=== PATIENT | female | born 1955 | race African-American/Black ===

== ENCOUNTER → 2016-06-27 | Outpatient (CLI) | payer MEDICARE, MEDICAID ==
[~2016-06-27] MED LIST: AMINOPHYLLINE INJ/PF 250 MG/10 ML SDV IV ONE; REGADENOSON INJ 0.4 MG/5 ML DISP.SYRIN IV ONE
--- NOTE | 2016-06-28 11:32 | RADIOLOGY REPORT ---
STRESS TEST REPORT PATIENT NAME: MARCIA GANNON ROOM#: DATE OF SERVICE: 06/27/2016 AGE: 61Y ORDER#: [id number] REFERRING MD: Ciara torres INDICATION: Preoperative cardiovascular examination for kidney transplant. PROCEDURE PERFORMED: REST/STRESS SINGLE ISOTOPE CARDIOLITE SPECT IMAGING WITH IV LEXISCAN STRESS AND GATED SPECT IMAGING CLINICAL HISTORY: This is a 61-year-old black female with no known coronary artery disease but has cardiac risk factors of hypertension and ESRD. Current symptomatology includes no chest pains. REPORT: This test was originally ordered as an exercise myocardial perfusion imaging stress test. She was started on the treadmill and within one minute she declared that she could only walk one more minute. Heart rate that time was not sufficient for diagnostic purposes; therefore, the test was converted into an IV Lexiscan stress MPI. The patient received IV Lexiscan 0.4 mg infused over 10 seconds and flushed. The resting heart rate was 74 bpm and increased to 101 bpm at end infusion. The resting BP was 106/84 and increased to 164/74 at end infusion. Patient had symptoms of shortness of breath, as well as dizziness in the head despite no sign of hypotension. The repeat blood pressure was 160/80. She specifically had no chest pains and no headaches and no nausea. Due to a complaint of pressure in the head, she was given 100 mg IV Aminophyllin to reverse the side effect of pressure in the head at approximately seven minutes after the IV Lexiscan injection. The resting 12 lead EKG showed sinus rhythm of 74 bpm, [address] depression was seen in leads 2, 3, AVF and [address]-T inversion was seen in lead V6. At end infusion, the EKG showed a MET of [address]-T inversion in V6. Myocardial perfusion imaging was performed at rest 60 minutes following injection of 10.19 mCi Cardiolite. Ten seconds after patient was injected with the Lexiscan, she was injected with 31.5 mCi Cardiolite and flushed. Gated post stress tomographic imaging was performed 60 minutes approximately 60 minutes after stress. FINDINGS: The overall quality of the study is good. The left ventricular cavity is noted to be more enlarged on the stress compared to the rest study. There is evidence of abnormal transient ischemic dilatation of the left ventricle. TID ratio was 1.25, and this is abnormal. SPECT images showed no evidence of IV Lexiscan induced reversible ischemia, but there was small moderate fixed perfusion defects in the basal inferior wall and basal inferoseptal wall. The gated SPECT imaging showed reduced motion and contraction in the basal inferior wall. The left ventricular ejection fraction was calculated to be 52%. IMPRESSION: MYOCARDIAL PERFUSION IMAGING IS ABNORMAL. THERE IS TRANSIENT ISCHEMIC DILATATION OF THE LEFT VENTRICLE WITH TID RATIO OF 1.25 VISUALLY CONFIRMED. THERE IS A SMALL AREA OF MODERATELY FIXED PERFUSION DEFECT IN THE BASAL INFERIOR WALL AND BASAL INFEROSEPTAL WALL. OVERALL LEFT VENTRICULAR SYSTOLIC FUNCTION WAS LOW NORMAL AT 52% WITH REDUCED MOTION AND CONTRACTION SEEN IN THE BASAL INFERIOR WALL. NO PRIOR STUDIES FOR COMPARISON. INTERPRETING PHYSICIAN: AVRIL NEWSOME M.D. /: NOAH TT: [id number] ID: [id number] /: [id number] TD: 0931 JOB: [id number] cc:Ciara KELLEY M.D > MTDD
--- NOTE | 2016-06-29 19:31 | XCELERA REPORT ---
[address] [address] Transthoracic Echocardiogram Report Name: MARCIA GANNON Age: 61 yrs Gender: Female : 1955 Patient Status: Outpatient Patient Location: [facility] Study Date: 06/27/2016 11:07 AM Height: 65 in Weight: 105 lb BSA: 1.5 m2 Procedure: A complete two-dimensional transthoracic echocardiogram was performed (2D, M-mode, spectral and color flow Doppler). The study was technically adequate with some images being suboptimal in quality. Reason For Study: Z01.810 Ordering Physician: REBEL WOOTENC Performed By: Penny Haij Interpretation Summary The left ventricular ejection fraction is normal. There is moderate concentric left ventricular hypertrophy. Doppler measurements suggest pseudonormalized left ventricular relaxation, which is associated with grade II/IV or mild to moderate diastolic dysfunction The left ventricle is grossly normal size. Wall motion cannot be accurately commented on, but no definite regional wall motion abnormalities noted. There is moderate pulmonary hypertension by echo Right ventricular systolic pressure is estimated to be elevated at 50- 60mmHg. The right ventricle appears to be hypertrophied The right ventricular systolic function is normal. The right ventricle is grossly normal size. The right atrium is normal in size The left atrium is mildly dilated. There is a mild amount of mitral regurgitation There is no mitral valve stenosis. There is no aortic valve stenosis No aortic regurgitation is present. There is a mild amount of tricuspid regurgitation The aortic root is not well visualized but is probably normal size. The inferior vena cava appeared normal and decreased > 50% with respiration (RAP 5-10 mmHg) Minimal pericardial effusion. MMode/2D Measurements \T\ Calculations RVDd: 2.6 cm LVIDd: 4.6 cm FS: 44.5 % Ao root diam: 2.3 cm IVSd: 1.4 cm LVIDs: 2.5 cm EDV(Teich): 95.4 ml LVPWd: 1.4 cm ESV(Teich): 23.1 ml Ao root area: 4.0 cm2 EF(Teich): 75.8 % LA dimension: 4.4 cm LVOT diam: 1.9 cm LVOT area: 3.0 cm2 Doppler Measurements \T\ Calculations MV E max clementine: MV P1/2t max clementine: Ao V2 max: LV V1 max P.2 cm/sec 76.8 cm/sec 190.0 cm/sec 12.8 mmHg MV A max clementine: MV P1/2t: 109.9 msec Ao max PG: LV V1 max: 57.6 cm/sec MVA(P1/2t): 2.0 cm2 14.4 mmHg 178.9 cm/sec MV E/A: 1.3 MV dec slope: CRISTO(V,D): 2.8 cm2 204.7 cm/sec2 PA V2 max: PI end-d clementine: TR max clementine: 112.4 cm/sec 178.8 cm/sec 365.8 cm/sec PA max PG: TR max P.1 mmHg 53.6 mmHg Left Ventricle The left ventricle is grossly normal size. There is moderate concentric left ventricular hypertrophy. The left ventricular ejection fraction is normal. Doppler measurements suggest pseudonormalized left ventricular relaxation, which is associated with grade II/IV or mild to moderate diastolic dysfunction. Wall motion cannot be accurately commented on, but no definite regional wall motion abnormalities noted. Right Ventricle The right ventricle is grossly normal size. The right ventricle appears to be hypertrophied. The right ventricular systolic function is normal. Atria The right atrium is normal in size. The left atrium is mildly dilated. Interarterial septum not well visualized and not well dopplered. Cannot comment on ASD/PFO presence. Mitral Valve The mitral valve is grossly normal. There is no mitral valve stenosis. There is a mild amount of mitral regurgitation. Aortic Valve The aortic valve is grossly normal. There is no aortic valve stenosis. No aortic regurgitation is present. Tricuspid Valve The tricuspid valve is not well visualized, but is grossly normal. There is no tricuspid stenosis. There is a mild amount of tricuspid regurgitation. There is moderate pulmonary hypertension by echo. Right ventricular systolic pressure is estimated to be elevated at 50-60mmHg. Pulmonic Valve The pulmonic valve is not well visualized. Great Vessels The aortic root is not well visualized but is probably normal size. The inferior vena cava appeared normal and decreased > 50% with respiration (RAP 5-10 mmHg). Effusions Minimal pericardial effusion. : CHRIS ZELAYA, ELECTRICAL ASSEMBLY SUPERVISOR-C > Katalina Hernandez
== END ==
LOC: RAD 06:56
PROVIDERS: ATTEND Registered Nurse
DX: Z01.810 Encounter for preprocedural cardiovascular examination (principal); I12.0 Hypertensive chronic kidney disease with stage 5 chronic kidney disease or end stage renal disease; N18.6 End stage renal disease
CPT/HCPCS: 93306; 93017; 78452; A9500; J2785; J0280; Q9969

== ENCOUNTER → 2017-09-05 | Outpatient (CLI) | payer OTHER, MEDICARE, MEDICAID ==
--- NOTE | 2017-09-05 11:18 | RADIOLOGY REPORT (SQ) ---
EXAM DESCRIPTION: CT ABD/PELVIS WITH IV ONLY COMPLETED DATE/TIME: 09/05/2017 10:57 am REASON FOR STUDY: ABN FINDINGS ON DX IMAGING OF ABD REGIONS, INC RETROPERITON R93.5 ABN FINDINGS ON DX IMAGING OF ABD REGIONS, INC RETROPE COMPARISON: CT pelvis 02/25/2015 TECHNIQUE: CT scan of the abdomen and pelvis performed using helical scanning technique with dynamic intravenous contrast injection. No oral contrast. Images reviewed with lung, soft tissue, and bone windows. Reconstructed coronal and sagittal MPR images reviewed. Delayed images for evaluation of the urinary system also acquired. All images stored on PACS. All CT scanners at this facility use dose modulation, iterative reconstruction, and/or weight based d osing when appropriate to reduce radiation dose to as low as reasonably achievable (ALARA). [facility]: Dose Right [facility]: CareDose [facility]: Dose Right [facility]: Teradose 4D [facility]: [employer] CONTRAST TYPE AND DOSE: contrast/concentration: Isovue 370.00 mg/ml; Total Contrast Delivered: 52.0 ml; Total Saline Delivered: 65.0 ml RENAL FUNCTION: Creatinine 8.3. Patient is on dialysis, CT for renal transplant workup. RADIATION DOSE: CT Rad equipment meets quality standard of care and radiation dose reduction techniq ues were employed. CTDIvol: 2.2 - 3.1 mGy. DLP: 327 mGy-cm.. LIMITATIONS: None. FINDINGS: LOWER CHEST: No significant findings. No nodules or infiltrates. LIVER: Normal size. No masses. No dilated ducts. SPLEEN: Normal size. No focal lesions. PANCREAS: No masses. No significant calcifications. No adjacent inflammation or peripancreatic fluid collections. Pancreatic duct not dilated. GALLBLADDER: No identified stones by CT criteria. No inflammatory changes to suggest cholecystitis. ADRENAL GLANDS: No significant masses or asymmetry. RIGHT KIDNEY AND URETER: Right kidney is 7.6 cm in length with diffuse cortical thinning. No solid m asses. Less than 1 cm cyst right upper pole kidney. No significant calcifications. No hydronephr osis or hydroureter. LEFT KIDNEY AND URETER: Left kidney is 6.7 cm in length with diffuse cortical thinning. No solid mas ses. 4 cm left midpole cortical cyst, 1.6 cm left lower pole cortical cyst. No significant calcifi cations. No hydronephrosis or hydroureter. AORTA AND VESSELS: No aneurysm. No dissection. SMA, celiac without stenosis. Heavily calcified bilat eral craig renal arteries. Bilateral common iliac, internal iliac and external iliac arteries and v eins are patent. No significant stenosis of the common iliac or external iliac arteries. RETROPERITONEUM: No retroperitoneal adenopathy, hemorrhage or masses. BOWEL AND PERITONEAL CAVITY: No masses or inflammatory changes. No free fluid or peritoneal masses. Large amount of stool throughout the colon APPENDIX: Not definitely visualized. PELVIS: Enlarged fibroid uterus 10 x 7 x 7 cm in size. Ovaries not identified. No free fluid. Callie l bladder. ABDOMINAL WALL: No masses. No hernias. BONES: No significant or acute findings. OTHER: No other significant finding. IMPRESSION: Small nonfunctioning kidneys bilaterally. Benign renal cortical cysts. Enlarged fibroid uterus. TECHNICAL DOCUMENTATION: JOB ID: [id number] Quality ID # [id number]: Final reports with documentation of one or more dose reduction techniques (e.g., Au tomated exposure control, adjustment of the mA and/or kV according to patient size, use of iterative reconstruction technique) 2010 [employer]- All Rights Reserved Reading location - IP/workstation name: [facility]
== END ==
LOC: RAD 10:13
PROVIDERS: ATTEND Registered Nurse
DX: R93.5 Abnormal findings on diagnostic imaging of other abdominal regions, including retroperitoneum (principal)
CPT/HCPCS: 74177; 82565

== ENCOUNTER 2018-02-13 01:16 | Emergency (ER) | payer MEDICARE, OTHER, MEDICAID ==
--- NOTE | 2018-02-13 01:50 | ER Document Report ---
ED General - General Chief Complaint: Pain All Over Stated Complaint: HEADACHE Time Seen by Provider: 02/13/18 01:41 Notes: Patient is a 62-year-old female presents with complaint of body aches and headache. She says a few weeks ago she had some runny nose and congestion and that got outer. That time she also had body aches but it also got better. Her family members are also sick. Today she started getting a lot of congestion and runny nose again and then tonight she started in the body aches and some headache again. She took some Tylenol which is up a little bit but not relieved her pain. No deep breathing. No neck stiffness. No fevers. The patient says she never gets a fever. No vomiting. She does have history of chronic kidney disease. No dysuria. TRAVEL OUTSIDE OF THE [place] IN LAST 30 DAYS: No - Related Data Allergies/Adverse Reactions: No Known Allergies Allergy (Verified 11/05/13 16:16) Past Medical History - Social History Smoking Status: Never Smoker Frequency of alcohol use: None Drug Abuse: None Family History: CVA, Hypertension - Past Medical History Cardiac Medical History: Reports: Hx Hypertension Renal/ Medical History: Reports: Hx End Stage Renal Disease - Dialysis MWF - Immunizations Hx Diphtheria, Pertussis, Tetanus Vaccination: Yes Review of Systems - Review of Systems Notes: My Normal Review Basic REVIEW OF SYSTEMS: CONSTITUTIONAL : No fever. URI type symptoms. EENT: No congestion. CARDIOVASCULAR: Denies chest pain. RESPIRATORY: Denies cough, cold, or chest congestion. Denies shortness of breath, difficulty breathing, or wheezing. GASTROINTESTINAL: Denies abdominal pain. Denies nausea, vomiting, or diarrhea. Denies constipation. Last BM: GENITOURINARY: Denies difficulty urinating, painful urination, burning, frequency, or blood in urine. MUSCULOSKELETAL: Body aches SKIN: Denies rash or skin lesions. NEUROLOGICAL: Denies altered mental status or loss of consciousness. Has a headache. Denies weakness or paralysis or loss of use of either side. Denies problems with gait or speech. Denies sensory or motor loss. ALL OTHER SYSTEMS REVIEWED AND NEGATIVE. Physical Exam - Vital signs Vitals: Temp Pulse Resp BP Pulse Ox 98.4 F 72 16 141/59 H 100 02/13/18 01:17 02/13/18 01:17 02/13/18 01:17 02/13/18 01:17 02/13/18 01:17 - Notes Notes: General Appearance: Well nourished, alert, cooperative, no acute distress, mild obvious discomfort. Vitals: reviewed, See vital signs table. Head: no swelling or tenderness to the head Eyes: PERRL, EOMI, Conjuctiva clear Mouth: No decreasd moisture Throat: No tonsillar inflammation, No airway obstruction, No lymphadenopathy Ears: Normal-appearing tympanic membranes bilaterally. Neck: Supple, no neck tenderness, Lungs: No wheezing, No rales, No rhonci, No accessory muscle use, good air exchange bilaterally. Heart: Normal rate, Regular rythm, No murmur, no rub Abdomen: Normal BS, soft, No rigidity, No abdominal tenderness, No guarding, no rebound, no abdominal masses, no organomegaly Extremities: strength 5/5 in all extremities, good pulses in all extremities, no swelling or tenderness in the extremities, no edema. Skin: warm, dry, appropriate color, no rash Neuro: speech clear, oriented x 3, normal affect, responds appropriately to questions. Cranial nerves II through XII are intact. Distal sensation intact. Patient moves all extremities without difficulty. Course - Re-evaluation Re-evalutation: 02/13/18 02:57 Patient continues look well on reevaluation. She does have a lot of sinus congestion which I think is probably contributing to the pressure that she has in her forehead and sinuses. I will give her a dose of Decadron as hopefully this will help relieve some of the inflammation around her sinuses relieve some of the pressure. She is using Nasacort at home. I encouraged her to continue to do this. Flu swab is negative. I encouraged her to follow-up closely with her primary care doctor for reevaluation later this week. I encouraged her return to ER if she has fevers, difficulty breathing, or worsening of her symptoms. Patient agrees with plan and will be discharged home. Dictation of this chart was performed using voice recognition software; therefore, there may be some unintended grammatical errors. - Vital Signs Vital signs: Temp Pulse Resp BP Pulse Ox 98.4 F 72 16 141/59 H 100 02/13/18 01:17 02/13/18 01:17 02/13/18 01:17 02/13/18 01:17 02/13/18 01:17 Discharge - Discharge Clinical Impression: Body aches URI (upper respiratory infection) Qualifiers: URI type: unspecified URI Qualified Code(s): J06.9 - Acute upper respiratory infection, unspecified Headache Qualifiers: Headache type: unspecified Headache chronicity pattern: unspecified pattern Intractability: not intractable Qualified Code(s): R51 - Headache Condition: Good Disposition: HOME, SELF-CARE Additional Instructions: Please continue to use over the counter nasal sprays such as Nasacort. Please drink caffeinated liquids. Please follow-up with your doctor in 2-3 days for reevaluation. Please return to the ER for fevers, difficulty breathing, or feel that you are worsening in any way. Dictation of this chart was performed using voice recognition software; therefore, there may be some unintended grammatical errors. Referrals: CHRIS ZELAYA NP-C [Primary Care Provider] - 02/15/18
[2018-02-13 02:34] LABS: A TYPE INFLUENZA AG NEGATIVE (NEGATIVE); B INFLUENZA AG NEGATIVE (NEGATIVE)
[2018-02-13] MEDS ORDERED: DEXAMETHASONE SOD PHOS INJ 10 MG/1 ML VIAL IM ONE (02:53)
[2018-02-13 03:39] VITALS: BP 140/57
== END 2018-02-13 03:39 | disposition home or self-care (01) ==
LOC: ER 01:16
DX: J06.9 Acute upper respiratory infection, unspecified (principal); J32.9 Chronic sinusitis, unspecified; R51 Headache; I12.0 Hypertensive chronic kidney disease with stage 5 chronic kidney disease or end stage renal disease; N18.6 End stage renal disease; Z99.2 Dependence on renal dialysis
CPT/HCPCS: 99283; 96372; 87804; J1100

== ENCOUNTER 2018-08-01 04:48 | Emergency (ER) | payer MEDICARE, MEDICAID ==
[2018-08-01 08:08] LABS: APPEARANCE,URINE CLOUDY; BILIRUBIN,URINE NEGATIVE (NEGATIVE); COLOR,URINE YELLOW; GLUCOSE, URINE NEGATIVE (NEGATIVE); KETONES,URINE NEGATIVE (NEGATIVE); LEUKOCYTE ESTERASE,URINE SMALL (NEGATIVE); NITRITE,URINE NEGATIVE (NEGATIVE); PROTEIN,URINE >=500 mg/dL (NEGATIVE); URIC ACID CRYSTALS,URINE RARE /HPF; URINE SPECIFIC GRAVITY 1.016; UROBILINOGEN,URINE NEGATIVE mg/dL (<2.0)
--- NOTE | 2018-08-01 08:27 | ER Document Report ---
Addendum entered and electronically signed by JOEL MIJARES NP 08/01/18 10:56: Discharge - Discharge Clinical Impression: Abdominal pain Qualifiers: Abdominal location: lower abdomen, unspecified Qualified Code(s): R10.30 - Lower abdominal pain, unspecified Uterine fibroid Qualifiers: Uterine leiomyoma location: unspecified location Qualified Code(s): D25.9 - Leiomyoma of uterus, unspecified Constipation Qualifiers: Constipation type: unspecified constipation type Qualified Code(s): K59.00 - Constipation, unspecified Condition: Stable Disposition: HOME, SELF-CARE Instructions: Abdominal Pain ([facility]), Constipation ([facility]) Additional Instructions: Take medication as prescribed. Follow-up with [facility] at the next available appointment. Follow-up with your primary care doctor at the next available appointment. Follow-up sooner for worsening pain, high fever, persistent vomiting, worsening pain, or for any further concerns. Prescriptions: Tramadol HCl [Ultram 50 mg Tablet] 50 mg PO Q6HP PRN #12 tablet PRN Reason: Magnesium Citrate [Citrate of Magnesia 296 ml Bottle] 296 ml PO DAILY #1 bottle Polyethylene Glycol 3350 [Miralax] 1 cap PO DAILY #1 bottle Referrals: CHRIS ZELAYA NP-C [NO LOCAL MD] - Follow up as needed BULMARO FUNG MD [ACTIVE STAFF] - Follow up as needed Original Note: ED GI/ - General Chief Complaint: Urinary Problem Stated Complaint: POSSIBLE UTI Time Seen by Provider: 08/01/18 08:04 Primary Care Provider: CHRIS ZELAYA NP-C [NO LOCAL MD] - Follow up as needed Mode of Arrival: Ambulatory Information source: Patient TRAVEL OUTSIDE OF THE [place] IN LAST 30 DAYS: No - HPI Patient complains to provider of: Abdominal pain, Dysuria Notes: 08/01/18 08:25 Patient here with complaints of lower abdominal pain, pain with urination. This been on for about a week now. The patient is a dialysis patient went to dialysis yesterday. She states there was no problems with her dialysis yesterday. She states that she was having some nausea, vomiting, diarrhea earlier in the week, this has resolved. She states that she was diagnosed with a urinary tract infection is been taking Cipro but does not seem to feel any better. She denies any chest pain or shortness of breath at this time. She complains of some lower abdominal pain and some low back pain. No dysuria. States that she has had decrease in appetite has not been eating or drinking as much. No rash. She reports having a fever earlier in the week, she states that she has not had a fever for the last several days. Nothing makes her pain better. Pain seems to be worse when she attempts to urinate. She denies any numbness, tingling, weakness. No other complaints. She denies needing anything for pain at this time. - Related Data Allergies/Adverse Reactions: No Known Allergies Allergy (Verified 11/05/13 16:16) Past Medical History - Social History Smoking Status: Never Smoker Family History: CVA, Hypertension Patient has suicidal ideation: No Patient has homicidal ideation: No - Past Medical History Cardiac Medical History: Reports: Hx Hypertension Renal/ Medical History: Reports: Hx End Stage Renal Disease - Dialysis MWF. Denies: Hx Peritoneal Dialysis - Immunizations Hx Diphtheria, Pertussis, Tetanus Vaccination: Yes Review of Systems - Review of Systems -: Yes All other systems reviewed and negative Physical Exam - Vital signs Vitals: Temp Pulse Resp BP Pulse Ox 98.8 F 65 16 154/61 H 100 08/01/18 05:08 08/01/18 05:08 08/01/18 05:08 08/01/18 05:08 08/01/18 05:08 - Notes Notes: GENERAL: alert, cooperative, nontoxic, no distress. HEAD: normocephalic, atraumatic EYES: conjunctiva pink without discharge, no external redness or swelling. EARS: no external swelling, no external redness NOSE: atraumatic, no external swelling MOUTH/THROAT: mucous membranes moist and pink, posterior pharynx without erythema, swelling, exudate. No trismus or drooling. NECK: soft, supple, full range of motion, no meningismus. CHEST: no distress, lungs clear and equal throughout. No wheezing, rales, rhonchi. CARDIAC: regular rate and rhythm, no murmur, normal capillary refill, normal pulses. No peripheral edema noted. ABDOMEN: Soft, tenderness to palpation all across the lower abdomen. No rebound tenderness or guarding. No obvious mass. BACK: full range of motion, no CVA tenderness. EXTREMITIES: full range of motion of all extremities. No redness, no swelling. NEURO: alert and oriented x 3, no focal deficits, full range of motion of all extremities. PYSCH: appropriate mood, affect. Patient is cooperative. SKIN: pink, warm, dry, no rash. Course - Re-evaluation Re-evalutation: 08/01/18 10:47 Patient nontoxic-appearing with stable vitals. Here with complaints of lower abdominal pain. She is also been having some pain with urination and occasional difficulty urinating. She was seen and started on Cipro for possible UTI. She is afebrile. Urinalysis today shows no obvious signs of infection. I have ordered a urine culture. Labs are unremarkable for any significant abnormalities other than her typical findings of renal failure and mild anemia which is all unchanged. CT shows fibroid uterus displacing her urinary bladder. This certainly could be causing some of her discomfort. Potentially even causing some urinary tract infections if she is not completely emptying her bladder. Is also noted to be constipated. Patient will be given a prescription for mag citrate, MiraLAX, Ultram. She will be given referral to [facility]. Instructed to follow-up with her primary care doctor at the next available appointment. Follow-up sooner if she develops any worsening pain, high fever, persistent vomiting, or if has any further concerns. The patient's emergency department workup and current diagnosis were explained to the patient and or family. Follow-up instructions were provided. Medications if prescribed were discussed. Instructions for when to return to the emergency department including specific worrisome symptoms were discussed with the patient and/or family. - Vital Signs Vital signs: Temp Pulse Resp BP Pulse Ox 98.8 F 65 16 154/61 H 100 08/01/18 05:08 08/01/18 05:08 08/01/18 05:08 08/01/18 05:08 08/01/18 05:08 - Laboratory Result Diagrams: 08/01/18 08:55 08/01/18 08:55 Laboratory results interpreted by me: 08/01/18 08/01/18 08/01/18 07:40 08:55 08:55 WBC 11.5 H Hgb 11.6 L Hct 34.8 L RDW 16.1 H Seg Neutrophils % 81.0 H Lymphocytes % 8.9 L Absolute Neutrophils 9.3 H Chloride 94 L BUN 46 H Creatinine 8.72 H Est GFR ( Amer) 6 L Est GFR (Non-Af Amer) 5 L Glucose 117 H Calcium 11.3 H Direct Bilirubin 0.6 H Urine Protein >=500 H Ur Leukocyte Esterase SMALL H - Diagnostic Test Radiology reviewed: Image reviewed, Reports reviewed - CT abdomen and pelvis without contrast shows fibroids displacing the urinary bladder with constipation, no other acute findings. Discharge - Discharge Clinical Impression: Abdominal pain Qualifiers: Abdominal location: lower abdomen, unspecified Qualified Code(s): R10.30 - Lower abdominal pain, unspecified Uterine fibroid Qualifiers: Uterine leiomyoma location: unspecified location Qualified Code(s): D25.9 - L eiomyoma of uterus, unspecified Constipation Qualifiers: Constipation type: unspecified constipation type Qualified Code(s): K59.00 - Constipation, unspecified Condition: Stable Disposition: HOME, SELF-CARE Instructions: Abdominal Pain ([facility]), Constipation ([facility]) Additional Instructions: Take medication as prescribed. Follow-up with [facility] at the next available appointment. Follow-up with your primary care doctor at the next available appointment. Follow-up sooner for worsening pain, high fever, persistent vomiting, worsening pain, or for any further concerns. Prescriptions: Tramadol HCl [Ultram 50 mg Tablet] 50 mg PO Q6HP PRN #12 tablet PRN Reason: Magnesium Citrate [Citrate of Magnesia 296 ml Bottle] 296 ml PO DAILY #1 bottle Polyethylene Glycol 3350 [Miralax] 1 cap PO DAILY #1 bottle Referrals: CHRIS ZELAYA NP-C [NO LOCAL MD] - Follow up as needed
[2018-08-01 09:11] LABS: ABSOLUTE EOSINOPHILS # (AUTO) 0.1 10^3/uL (0.0-0.6); ABSOLUTE NEUT (AUTO) 9.3 10^3/uL (1.7-8.2); BASOPHILS % (AUTO) 0.1 % (0-2); HEMATOCRIT 34.8 % (36.0-47.0); HEMOGLOBIN 11.6 g/dL (12.0-15.5); LYMPHOCYTES % (AUTO) 8.9 % (13-45); MEAN CORPUSCULAR HEMOGLOBIN 29.8 pg (27.0-33.4); MEAN CORPUSCULAR HGB CONC 33.2 g/dL (32.0-36.0); MEAN CORPUSCULAR VOLUME 90 fl (80-97); PLATELET COUNT 326 10^3/uL (150-450); RED BLOOD COUNT 3.88 10^6/uL (3.72-5.28); RED CELL DISTRIBUTION WIDTH 16.1 % (11.5-14.0); TOTAL CELLS COUNTED % (AUTO) 100 %; WHITE BLOOD COUNT 11.5 10^3/uL (4.0-10.5)
--- NOTE | 2018-08-01 09:19 | RADIOLOGY REPORT (SQ) ---
EXAM DESCRIPTION: CT ABD/PELVIS NO ORAL OR IV COMPLETED DATE/TIME: 08/01/2018 8:49 am REASON FOR STUDY: lower abdo pain, pain with urination.Suprapubic pain radiating to umbilicus. COMPARISON: None. TECHNIQUE: CT scan of the abdomen and pelvis performed without intravenous or oral contrast. Images reviewed with lung, soft tissue, and bone windows. Reconstructed coronal and sagittal MPR images revi ewed. All images stored on PACS. All CT scanners at this facility use dose modulation, iterative reconstruction, and/or weight based d osing when appropriate to reduce radiation dose to as low as reasonably achievable (ALARA). [facility]: Dose Right [facility]: CareDose [facility]: Dose Right [facility]: Teradose 4D [facility]: Smart [employer] RADIATION DOSE: CT Rad equipment meets quality standard of care and radiation dose reduction techniq ues were employed. CTDIvol: 4.8 mGy. DLP: 230 mGy-cm.mGy. LIMITATIONS: None. FINDINGS: LOWER CHEST: Chronic scarring in lung bases. NON-CONTRASTED LIVER, SPLEEN, ADRENALS: Liver: No abnormality. Spleen: No abnormality. Adrenals: No abnormality. PANCREAS: No abnormality seen. Pancreatic duct measures 2 mm . GALLBLADDER: No abnormality. . RIGHT KIDNEY AND URETER: The right kidney measures 7.1 cm demonstrating cortical thinning with cortic al cyst. LEFT KIDNEY AND URETER: The left kidney measures 7.6 cm. There are cortical cysts in the upper pole of the left kidney and parapelvic cyst lower pole left kidney. AORTA AND RETROPERITONEUM: Atherosclerotic change of the abdominal aorta and iliac vessels. Atherosc lerotic change of renal arteries. . No retroperitoneal masses or adenopathy. BOWEL AND PERITONEAL CAVITY: Changes of constipation with a moderate amount of fecal material through out the colon. Colonic diverticulosis. APPENDIX: No abnormality. PELVIS, BLADDER, AND ABDOMINAL WALL:Uterus: There is evidence of an enlarged fibroid uterus with mul tiple calcified fibroids. Urinary bladder: The urinary bladder is decompressed. Urinary bladder di splaced inferiorly by the enlarged uterus. BONES: Osteosclerotic changes of the bony structures consistent with renal osteodystrophy. There is a lytic lesion in the subtrochanteric region of the right femur with sclerotic margin consistent with a benign bone lesion IMPRESSION: 1. Bilateral atrophic kidneys containing simple cyst and parapelvic cyst consistent wit h a history of chronic renal failure in dialysis patient. Bony changes consistent with renal osteody strophy. 2. Prominent fibroid uterus displacing bladder inferiorly. COMMENT: The case was discussed with Eric Saleem phone Quality ID # [id number]: Final reports with documentation of one or more dose reduction techniques (e.g., Au tomated exposure control, adjustment of the mA and/or kV according to patient size, use of iterative reconstruction technique) TECHNICAL DOCUMENTATION: JOB ID: [id number] SC-[id number] 2010 [employer]- All Rights Reserved Reading location - IP/workstation name: [email or web address]
[2018-08-01 10:22] LABS: ALANINE AMINOTRANSFERASE 26 U/L (9-52); ALKALINE PHOSPHATASE 66 U/L (38-126); ANION GAP 17 (5-19); ASPARTATE AMINO TRANSFERASE 15 U/L (14-36); BILIRUBIN,DIRECT 0.6 mg/dL (0.0-0.4); BILIRUBIN,TOTAL 0.6 mg/dL (0.2-1.3); BLOOD UREA NITROGEN 46 mg/dL (7-20); CALCIUM 11.3 mg/dL (8.4-10.2); CARBON DIOXIDE 29 mmol/L (22-30); CHLORIDE 94 mmol/L (98-107); GLUCOSE 117 mg/dL (75-110); LIPASE 74.2 U/L (23-300); POTASSIUM 4.7 mmol/L (3.6-5.0); SODIUM 140.1 mmol/L (137-145); TOTAL PROTEIN 7.2 g/dL (6.3-8.2)
[2018-08-01 11:09] VITALS: BP 194/70
== END 2018-08-01 11:06 | disposition home or self-care (01) ==
LOC: ER 04:48
DX: K59.00 Constipation, unspecified (principal); D25.9 Leiomyoma of uterus, unspecified; R10.30 Lower abdominal pain, unspecified; R30.9 Painful micturition, unspecified; R63.0 Anorexia; I12.0 Hypertensive chronic kidney disease with stage 5 chronic kidney disease or end stage renal disease; D63.1 Anemia in chronic kidney disease; N18.6 End stage renal disease; Z99.2 Dependence on renal dialysis
CPT/HCPCS: 36415; 74176; 80053; 81001; 83690; 85025; 87086; 99284

== ENCOUNTER → 2018-08-20 | Outpatient (CLI) | payer MEDICARE, MEDICAID ==
[2018-08-21 14:37] LABS: FREE KAPPA LIGHT CHAINS 290.2 mg/L (3.3-19.4); FREE LAMBDA LIGHT CHAINS 250.6 mg/L (5.7-26.3)
[2018-08-21 16:21] LABS: KAPPA LAMBDA RATIO 1.16 (0.26-1.65)
[2018-08-22 16:38] LABS: A/G RATIO 1.1 (0.7-1.7); ALBUMIN 2 3.8 g/dL (2.9-4.4); ALPHA-2-GLOBULIN 2 0.7 g/dL (0.4-1.0); GAMMA GLOBULIN 1.4 g/dL (0.4-1.8); GLOBULIN TOTAL 3.4 g/dL (2.2-3.9); MONOCLONAL SPIKE Not Observed g/dL (Not Observ); PROTEIN TOTAL SERUM 7.2 g/dL (6.0-8.5)
== END ==
LOC: OD 08:50
PROVIDERS: ATTEND Internal Medicine Nephrology
DX: E83.52 Hypercalcemia (principal)
CPT/HCPCS: 36415; 83883; 84165

== ENCOUNTER → 2018-10-23 | Outpatient (CLI) | payer OTHER, MEDICARE, MEDICAID ==
[2018-10-23 08:46] LABS: HEMATOCRIT 28.5 % (36.0-47.0); HEMOGLOBIN 9.5 g/dL (12.0-15.5); MEAN CORPUSCULAR HGB CONC 33.2 g/dL (32.0-36.0); MEAN CORPUSCULAR VOLUME 90 fl (80-97); PLATELET COUNT 193 10^3/uL (150-450); RED BLOOD COUNT 3.16 10^6/uL (3.72-5.28); RED CELL DISTRIBUTION WIDTH 16.8 % (11.5-14.0); WHITE BLOOD COUNT 7.8 10^3/uL (4.0-10.5)
[2018-10-23 09:22] LABS: ANION GAP 10 (5-19); BLOOD UREA NITROGEN 33 mg/dL (7-20); CALCIUM 9.7 mg/dL (8.4-10.2); CARBON DIOXIDE 26 mmol/L (22-30); CHLORIDE 104 mmol/L (98-107); GLUCOSE 90 mg/dL (75-110); POTASSIUM 3.6 mmol/L (3.6-5.0)
[2018-10-23 15:40] LABS: APPEARANCE,URINE CLEAR; BILIRUBIN,URINE NEGATIVE (NEGATIVE); COLOR,URINE YELLOW; GLUCOSE, URINE NEGATIVE (NEGATIVE); KETONES,URINE NEGATIVE (NEGATIVE); LEUKOCYTE ESTERASE,URINE SMALL (NEGATIVE); NITRITE,URINE NEGATIVE (NEGATIVE); PROTEIN,URINE 100 mg/dL (NEGATIVE); UROBILINOGEN,URINE NEGATIVE mg/dL (<2.0)
[2018-10-23 15:52] LABS: UR PRO/CREAT RATIO RESULT 1.6 mg/mg (0.0-0.2); URINE CREATININE 62.7 mg/dL (15-278); URINE PROTEIN 102.3 mg/dL (<12)
[2018-10-24 14:48] LABS: BK PCR QNT Negative copies/mL (Negative)
[2018-10-25 07:44] LABS: CMV DNA PCR QUANT Negative (Negative)
[2018-10-25 10:36] LABS: TACROLIMUS (FK506) 10.8 ng/mL (2.0-20.0)
== END ==
LOC: OD 07:38
PROVIDERS: ATTEND Nurse Practitioner
DX: B25.9 Cytomegaloviral disease, unspecified (principal); Z94.0 Kidney transplant status; Z51.81 Encounter for therapeutic drug level monitoring; Z79.899 Other long term (current) drug therapy
CPT/HCPCS: 36415; 80048; 80197; 81001; 82570; 84156; 85027; 87496; 87799

== ENCOUNTER → 2018-10-25 | Outpatient (CLI) | payer OTHER, MEDICARE, MEDICAID ==
[2018-10-25 08:30] LABS: HEMATOCRIT 29.8 % (36.0-47.0); HEMOGLOBIN 9.9 g/dL (12.0-15.5); MEAN CORPUSCULAR HEMOGLOBIN 29.8 pg (27.0-33.4); MEAN CORPUSCULAR HGB CONC 33.2 g/dL (32.0-36.0); MEAN CORPUSCULAR VOLUME 90 fl (80-97); RED BLOOD COUNT 3.31 10^6/uL (3.72-5.28); RED CELL DISTRIBUTION WIDTH 17.3 % (11.5-14.0); WHITE BLOOD COUNT 8.1 10^3/uL (4.0-10.5)
[2018-10-25 08:40] LABS: APPEARANCE,URINE CLEAR; BILIRUBIN,URINE NEGATIVE (NEGATIVE); COLOR,URINE YELLOW; GLUCOSE, URINE NEGATIVE (NEGATIVE); KETONES,URINE NEGATIVE (NEGATIVE); LEUKOCYTE ESTERASE,URINE SMALL (NEGATIVE); NITRITE,URINE NEGATIVE (NEGATIVE); PROTEIN,URINE 30 mg/dL (NEGATIVE); URINE SPECIFIC GRAVITY 1.009; UROBILINOGEN,URINE NEGATIVE mg/dL (<2.0)
[2018-10-25 09:00] LABS: ANION GAP 12 (5-19); BLOOD UREA NITROGEN 43 mg/dL (7-20); CARBON DIOXIDE 23 mmol/L (22-30); CHLORIDE 109 mmol/L (98-107); GLUCOSE 89 mg/dL (75-110)
[2018-10-25 09:12] LABS: UR PRO/CREAT RATIO RESULT 1.6 mg/mg (0.0-0.2); URINE CREATININE 40.8 mg/dL (15-278)
[2018-10-25 09:17] LABS: PLATELET COUNT 214 10^3/uL (150-450)
[2018-10-28 07:17] LABS: TACROLIMUS (FK506) 8.7 ng/mL (2.0-20.0)
[2018-10-29 07:10] LABS: BK PCR QNT Negative copies/mL (Negative)
[2018-10-29 11:04] LABS: CMV DNA PCR QUANT Negative (Negative)
== END ==
LOC: OD 07:10
PROVIDERS: ATTEND Student in an Organized Health Care Education/Training Program
DX: Z94.0 Kidney transplant status (principal); N39.0 Urinary tract infection, site not specified; D25.9 Leiomyoma of uterus, unspecified; B34.9 Viral infection, unspecified; Z51.81 Encounter for therapeutic drug level monitoring; Z79.899 Other long term (current) drug therapy
CPT/HCPCS: 36415; 80048; 80197; 81001; 82570; 84156; 85027; 87496; 87799

== ENCOUNTER → 2018-10-30 | Outpatient (CLI) | payer MEDICARE, OTHER, MEDICAID ==
[2018-10-30 08:19] LABS: HEMOGLOBIN 9.1 g/dL (12.0-15.5); MEAN CORPUSCULAR HEMOGLOBIN 30.1 pg (27.0-33.4); MEAN CORPUSCULAR HGB CONC 33.6 g/dL (32.0-36.0); MEAN CORPUSCULAR VOLUME 90 fl (80-97); PLATELET COUNT 236 10^3/uL (150-450); RED BLOOD COUNT 3.01 10^6/uL (3.72-5.28); RED CELL DISTRIBUTION WIDTH 17.1 % (11.5-14.0); WHITE BLOOD COUNT 4.6 10^3/uL (4.0-10.5)
[2018-10-30 08:32] LABS: APPEARANCE,URINE CLEAR; BILIRUBIN,URINE NEGATIVE (NEGATIVE); COLOR,URINE YELLOW; GLUCOSE, URINE 50 mg/dL (NEGATIVE); KETONES,URINE NEGATIVE (NEGATIVE); LEUKOCYTE ESTERASE,URINE SMALL (NEGATIVE); NITRITE,URINE NEGATIVE (NEGATIVE); PROTEIN,URINE 30 mg/dL (NEGATIVE); URINE SPECIFIC GRAVITY 1.011; UROBILINOGEN,URINE NEGATIVE mg/dL (<2.0)
[2018-10-30 08:44] LABS: ANION GAP 8 (5-19); BLOOD UREA NITROGEN 29 mg/dL (7-20); CALCIUM 9.9 mg/dL (8.4-10.2); CARBON DIOXIDE 25 mmol/L (22-30); CHLORIDE 108 mmol/L (98-107); GLUCOSE 96 mg/dL (75-110); POTASSIUM 3.7 mmol/L (3.6-5.0)
[2018-10-30 08:51] LABS: URINE CREATININE 59.9 mg/dL (15-278); URINE PROTEIN 57.7 mg/dL (<12)
[2018-11-01 14:57] LABS: TACROLIMUS (FK506) 10.2 ng/mL (2.0-20.0)
[2018-11-01 14:58] LABS: BK PCR QNT Negative copies/mL (Negative)
[2018-11-01 18:20] LABS: CMV DNA PCR QUANT Negative (Negative)
== END ==
LOC: OD 07:14
PROVIDERS: ATTEND Student in an Organized Health Care Education/Training Program
DX: B25.9 Cytomegaloviral disease, unspecified (principal); Z94.0 Kidney transplant status; Z51.81 Encounter for therapeutic drug level monitoring; Z79.899 Other long term (current) drug therapy
CPT/HCPCS: 36415; 80048; 80197; 81001; 82570; 84156; 85027; 87496; 87799

== ENCOUNTER 2018-10-31 15:46 | Emergency (ER) | payer MEDICARE, OTHER, MEDICAID ==
--- NOTE | 2018-10-31 16:31 | ER Document Report ---
ED Medical Screen (RME) - General Chief Complaint: Rectal Bleeding Stated Complaint: BLOOD IN STOOL Time Seen by Provider: 10/31/18 16:28 Primary Care Provider: JOVON RIVERA [Primary Care Provider] - Follow up as needed Mode of Arrival: Ambulatory Information source: Patient Notes: 63-year-old female presents to ED for rectal bleeding. She states she had sharp blood last night. She states today when she goes to the bathroom to urinate and she passes gas leak some blood. She states she did have a kidney transplant several months ago and had a colonoscopy a week and a half ago with no biopsies. She states the only other surgeries she had with kidney biopsy before the kidney transplant. Her medical history is high blood pressure and kidney failure. Patient is alert oriented respirations regular and unlabored speaking in full sentences. I have greeted and performed a rapid initial assessment of this patient. A comprehensive ED assessment and evaluation of the patient, analysis of test results and completion of medical decision making process will be conducted by an additional ED providers. Dictation of this chart was performed using voice recognition software; therefore, there may be some unintended grammatical errors. TRAVEL OUTSIDE OF THE [place] IN LAST 30 DAYS: No - Related Data Allergies/Adverse Reactions: No Known Allergies Allergy (Verified 10/31/18 15:46) Past Medical History - Past Medical History Cardiac Medical History: Reports: Hx Hypertension Renal/ Medical History: Reports: Hx End Stage Renal Disease - Dialysis MWF. Denies: Hx Peritoneal Dialysis - Immunizations Hx Diphtheria, Pertussis, Tetanus Vaccination: Yes Physical Exam - Vital signs Vitals: Temp Pulse Resp BP Pulse Ox 98.5 F 79 18 137/67 H 100 10/31/18 15:51 10/31/18 15:51 10/31/18 15:51 10/31/18 15:51 10/31/18 15:51 Course - Vital Signs Vital signs: Temp Pulse Resp BP Pulse Ox 98.5 F 79 18 137/67 H 100 10/31/18 15:51 10/31/18 15:51 10/31/18 15:51 10/31/18 15:51 10/31/18 15:51 Doctor's Discharge - Discharge Referrals: JOVON RIVERA [Primary Care Provider] - Follow up as needed
[2018-10-31 17:33] LABS: ABSOLUTE MONOCYTES (AUTO) 0.1 10^3/uL (0.1-1.4); MEAN CORPUSCULAR HEMOGLOBIN 29.9 pg (27.0-33.4); RED CELL DISTRIBUTION WIDTH 17.8 % (11.5-14.0); TOTAL CELLS COUNTED % (AUTO) 100 %
[2018-10-31 17:39] LABS: INTERNATIONAL RATION (INR) 1.09; PARTIAL THROMBOPLASTIN TIME 29.2 SEC (23.5-35.8); PROTHROMBIN TIME 14.2 SEC (11.4-15.4)
[2018-10-31 17:51] LABS: ALBUMIN 4.3 g/dL (3.5-5.0); ALKALINE PHOSPHATASE 57 U/L (38-126); ANION GAP 11 (5-19); ASPARTATE AMINO TRANSFERASE 21 U/L (14-36); BILIRUBIN,DIRECT 0.4 mg/dL (0.0-0.4); BILIRUBIN,TOTAL 0.5 mg/dL (0.2-1.3); BLOOD UREA NITROGEN 33 mg/dL (7-20); CALCIUM 10.6 mg/dL (8.4-10.2); CARBON DIOXIDE 20 mmol/L (22-30); CHLORIDE 109 mmol/L (98-107); GLUCOSE 148 mg/dL (75-110)
[2018-10-31 17:52] LABS: POTASSIUM 5.2 mmol/L (3.6-5.0)
[2018-10-31 18:03] LABS: ABSOLUTE LYMPHOCYTES (AUTO) 0.4 10^3/uL (0.5-4.7); ABSOLUTE NEUT (AUTO) 2.7 10^3/uL (1.7-8.2); BASOPHILS % (AUTO) 0.3 % (0-2); HEMATOCRIT 27.9 % (36.0-47.0); HEMOGLOBIN 9.1 g/dL (12.0-15.5); MEAN CORPUSCULAR HGB CONC 32.7 g/dL (32.0-36.0); MEAN CORPUSCULAR VOLUME 91 fl (80-97); MONOCYTES % (AUTO) 3.3 % (3-13); PLATELET COUNT 274 10^3/uL (150-450); RED BLOOD COUNT 3.06 10^6/uL (3.72-5.28); SEGMENTED NEUTROPHILS % (AUTO) 83.4 % (42-78); WHITE BLOOD COUNT 3.2 10^3/uL (4.0-10.5)
[2018-10-31 18:11] LABS: APPEARANCE,URINE CLEAR; BILIRUBIN,URINE NEGATIVE (NEGATIVE); COLOR,URINE YELLOW; GLUCOSE, URINE 150 mg/dL (NEGATIVE); KETONES,URINE NEGATIVE (NEGATIVE); LEUKOCYTE ESTERASE,URINE TRACE (NEGATIVE); NITRITE,URINE NEGATIVE (NEGATIVE); PROTEIN,URINE 30 mg/dL (NEGATIVE); URINE SPECIFIC GRAVITY 1.011; UROBILINOGEN,URINE NEGATIVE mg/dL (<2.0)
[2018-10-31 18:20] LABS: ADD MANUAL MICROSCOPIC YES
[2018-10-31 18:21] LABS: BACTERIA,URINE 1+ /HPF; WBC,URINE 0-1 /HPF; YEAST,URINE PRESENT
--- NOTE | 2018-10-31 19:12 | ER Document Report ---
ED General - General Chief Complaint: Rectal Bleeding Stated Complaint: BLOOD IN STOOL Time Seen by Provider: 10/31/18 16:28 Primary Care Provider: JOVON RIVERA [NO LOCAL MD] - Follow up as needed Mode of Arrival: Ambulatory TRAVEL OUTSIDE OF THE [place] IN LAST 30 DAYS: No - HPI Notes: Patient is a 63-year-old female that presents to the emergency department for chief complaint of blood in stool. Patient reports yesterday she had 2 episodes of loose stool with bright red blood. She denied any pain with bowel movement. She has not had a bowel movem ent today. She denies any associated abdominal pain but has had some reflux symptoms when lying flat. She denies any vomiting fevers or chills. Patient is not currently on blood thinning medications. She does report history of renal transplant at [facility] on 10/03. She does not know what her last creatinine was. She denies any complications since her renal transplant. Patient denies lightheadedness but does feel generally fatigued and gets short of breath quickly since her surgery. Past Medical History: CKD Past Surgical History: Transplant Social History: Denies drugs alcohol and tobacco Family History: Reviewed and noncontributory for presenting illness Allergies: Reviewed, see documented allergy list. REVIEW OF SYSTEMS: CONSTITUTIONAL : No fever No chills No diaphoresis No recent illness General fatigue EENT: No vision changes No congestion No sore throat CARDIOVASCULAR: No chest pain No palpitations RESPIRATORY: No shortness of breath No cough No difficulty breathing GASTROINTESTINAL: No abdominal pain No nausea No vomiting Bloody diarrhea GENITOURINARY: No dysuria No hematuria No difficulty urinating MUSCULOSKELETAL: No back pain No leg pain No arm pain SKIN: No rashes No lesions LYMPHATIC: No swollen, enlarged glands. NEUROLOGICAL: No lightheadedness No headache No weakness No paresthesias PSYCHIATRIC: No anxiety No depression PHYSICAL EXAMINATION: Vital signs reviewed, nursing noted reviewed. GENERAL: Well-appearing, well-nourished and in no acute distress. HEAD: Atraumatic, normocephalic. EYES: Eyes appear normal, extraocular movements intact, sclera anicteric, conjunctiva are normal. ENT: nares patent, oropharynx clear without exudates. Moist mucous membranes. NECK: Normal range of motion, supple without lymphadenopathy LUNGS: Breath sounds clear to auscultation bilaterally and equal. No wheezes rales or rhonchi. HEART: Regular rate and rhythm without murmurs ABDOMEN: Soft, nontender, normoactive bowel sounds. No rebound, guarding, or rigidity. No masses appreciated. EXTREMITIES: Nontender, good range of motion, no pitting or edema. : Hemoccult positive brown stool, no external hemorrhoids NEUROLOGICAL: No focal neurological deficits. Moves all extremities spontaneously Motor and sensory grossly intact on exam. PSYCH: Normal mood, normal affect. SKIN: Warm, Dry, normal turgor, abdominal surgical incisions well-healed with no bleeding or drainage - Related Data Allergies/Adverse Reactions: No Known Allergies Allergy (Verified 10/31/18 15:46) Past Medical History - General Information source: Patient - Social History Smoking Status: Never Smoker Family History: CVA, Hypertension Patient has suicidal ideation: No Patient has homicidal ideation: No - Past Medical History Cardiac Medical History: Reports: Hx Hypertension Renal/ Medical History: Reports: Hx End Stage Renal Disease - Dialysis MWF. Denies: Hx Peritoneal Dialysis - Immunizations Hx Diphtheria, Pertussis, Tetanus Vaccination: Yes Physical Exam - Vital signs Vitals: Temp Pulse Resp BP Pulse Ox 98.5 F 79 18 137/67 H 100 10/31/18 15:51 10/31/18 15:51 10/31/18 15:51 10/31/18 15:51 10/31/18 15:51 Course - Re-evaluation Re-evalutation: 10/31/18 19:10 Vitals reviewed. Nursing notes reviewed. Patient's lab work shows a hemoglobin of 9 which on chart review is around patient's baseline. Her creatinine today is elevated at 2.25 which is trending down compared to prior labs drawn over the last few days. She is not tachycardic or near syncopal and otherwise is well- appearing. Her surgical incisions are also well-appearing. Patient does have a mild leukopenia with a white count of 3.2. Urinalysis is otherwise negative for infection. Patient has no symptoms of acute UTI. She does also have hy perkalemia on lab work which was not present with lab draw this morning. Because of her recent renal transplant patients care will be discussed with the transplant team at [facility] for admission and monitoring of her GI bleeding. Laboratory 10/31/18 10/31/18 10/31/18 17:15 17:15 17:15 WBC 3.2 L RBC 3.06 L Hgb 9.1 L Hct 27.9 L MCV 91 MCH 29.9 MCHC 32.7 RDW 17.8 H Plt Count 274 Seg Neutrophils % 83.4 H Lymphocytes % 13.0 Monocytes % 3.3 Eosinophils % 0.0 Basophils % 0.3 Absolute Neutrophils 2.7 Absolute Lymphocytes 0.4 L Absolute Monocytes 0.1 Absolute Eosinophils 0.0 Absolute Basophils 0.0 PT 14.2 INR 1.09 APTT 29.2 Sodium 139.7 Potassium 5.2 H D Chloride 109 H Carbon Dioxide 20 L Anion Gap 11 BUN 33 H Creatinine 2.25 H Est GFR ( Amer) 27 L Est GFR (Non-Af Amer) 22 L Glucose 148 H Calcium 10.6 H Total Bilirubin 0.5 Direct Bilirubin 0.4 Neonat Total Bilirubin Not Reportable Neonat Direct Bilirubin Not Reportable Neonat Indirect Bili Not Reportable AST 21 ALT 8 Alkaline Phosphatase 57 Total Protein 7.0 Albumin 4.3 Lipase 73.5 Urine Color Urine Appearance Urine pH Ur Specific [place] Urine Protein Urine Glucose (UA) Urine Ketones Urine Blood Urine Nitrite Urine Bilirubin Urine Urobilinogen Ur Leukocyte Esterase Urine RBC Urine WBC Ur Squamous Epith Cells Urine Bacteria Urine Yeast Urine Ascorbic Acid POC Stool Occult Blood Blood Type Antibody Screen 10/31/18 10/31/18 10/31/18 17:15 17:15 18:49 WBC RBC Hgb Hct MCV MCH MCHC RDW Plt Count Seg Neutrophils % Lymphocytes % Monocytes % Eosinophils % Basophils % Absolute Neutrophils Absolute Lymphocytes Absolute Monocytes Absolute Eosinophils Absolute Basophils PT INR APTT Sodium Potassium Chloride Carbon Dioxide Anion Gap BUN Creatinine Est GFR ( Amer) Est GFR (Non-Af Amer) Glucose Calcium Total Bilirubin Direct Bilirubin Neonat Total Bilirubin Neonat Direct Bilirubin Neonat Indirect Bili AST ALT Alkaline Phosphatase Total Protein Albumin Lipase Urine Color YELLOW Urine Appearance CLEAR Urine pH 7.0 Ur Specific [place] 1.011 Urine Protein 30 H Urine Glucose (UA) 150 H Urine Ketones NEGATIVE Urine Blood MODERATE H Urine Nitrite NEGATIVE Urine Bilirubin NEGATIVE Urine Urobilinogen NEGATIVE Ur Leukocyte Esterase TRACE H Urine RBC 10-20 Urine WBC 0-1 Ur Squamous Epith Cells MODERATE Urine Bacteria 1+ Urine Yeast PRESENT Urine Ascorbic Acid NEGATIVE POC Stool Occult Blood POSITIVE Blood Type B POSITIVE Antibody Screen NEGATIVE 10/31/18 20:51 Patient has remained hemodynamically stable. She was given a 500 mL normal saline bolus. Patient will be transferred to [facility] for further ca re. Accepting physician Dr. Deloris Luz - Vital Signs Vital signs: Temp Pulse Resp BP Pulse Ox 98.5 F 79 13 144/74 H 100 10/31/18 15:51 10/31/18 15:51 10/31/18 19:01 10/31/18 19:01 10/31/18 19:01 - Laboratory Result Diagrams: 10/31/18 17:15 10/31/18 17:15 Laboratory results interpreted by me: 10/31/18 10/31/18 10/31/18 17:15 17:15 17:15 WBC 3.2 L RBC 3.06 L Hgb 9.1 L Hct 27.9 L RDW 17.8 H Seg Neutrophils % 83.4 H Absolute Lymphocytes 0.4 L Potassium 5.2 H D Chloride 109 H Carbon Dioxide 20 L BUN 33 H Creatinine 2.25 H Est GFR ( Amer) 27 L Est GFR (Non-Af Amer) 22 L Glucose 148 H Calcium 10.6 H Urine Protein 30 H Urine Glucose (UA) 150 H Urine Blood MODERATE H Ur Leukocyte Esterase TRACE H Discharge - Discharge Clinical Impression: Hyperkalemia, Renal insufficiency GI bleed Qualifiers: GI bleed type/associated pathology: unspecified gastrointestinal hemorrhage type Qualified Code(s): K92.2 - Gastrointestinal hemorrhage, unspecified Condition: Stable Disposition: [facility]
[2018-10-31] MEDS ORDERED: NORMAL SALINE 500 ML IV ONE (20:38)
--- NOTE | 2018-11-01 00:26 | ER Document Report ---
Doctor's Note Notes: 11/01/18 00:26 Transport at bedside, patient with no concerns, no further bloody bowel movements here, no pain, vital signs are stable. Patient is stable for transport.
[2018-11-01 00:27] VITALS: BP 162/70
== END 2018-11-01 00:32 | disposition short-term general hospital (02) ==
LOC: ER 15:46
DX: K92.2 Gastrointestinal hemorrhage, unspecified (principal); E87.5 Hyperkalemia; N28.9 Disorder of kidney and ureter, unspecified; R19.7 Diarrhea, unspecified; R53.83 Other fatigue; R06.02 Shortness of breath; I12.0 Hypertensive chronic kidney disease with stage 5 chronic kidney disease or end stage renal disease; N18.6 End stage renal disease; Z99.2 Dependence on renal dialysis
CPT/HCPCS: 99285; 96360; 96361; 86900; 86901; 36415; 87086; 86850; 83690; 85610; 85730; 87070; 81001; J7040

== ENCOUNTER → 2018-10-31 | Outpatient (CLI) | payer OTHER, MEDICARE, MEDICAID ==
[2018-10-31 07:50] LABS: HEMOGLOBIN 8.9 g/dL (12.0-15.5); MEAN CORPUSCULAR HEMOGLOBIN 30.8 pg (27.0-33.4); MEAN CORPUSCULAR HGB CONC 34.1 g/dL (32.0-36.0); MEAN CORPUSCULAR VOLUME 90 fl (80-97); PLATELET COUNT 256 10^3/uL (150-450); RED BLOOD COUNT 2.87 10^6/uL (3.72-5.28); RED CELL DISTRIBUTION WIDTH 17.6 % (11.5-14.0); WHITE BLOOD COUNT 4.1 10^3/uL (4.0-10.5)
[2018-10-31 08:16] LABS: APPEARANCE,URINE CLEAR; BILIRUBIN,URINE NEGATIVE (NEGATIVE); COLOR,URINE YELLOW; GLUCOSE, URINE 50 mg/dL (NEGATIVE); KETONES,URINE NEGATIVE (NEGATIVE); LEUKOCYTE ESTERASE,URINE SMALL (NEGATIVE); NITRITE,URINE NEGATIVE (NEGATIVE); PROTEIN,URINE 30 mg/dL (NEGATIVE); URINE SPECIFIC GRAVITY 1.011; UROBILINOGEN,URINE NEGATIVE mg/dL (<2.0)
[2018-10-31 08:17] LABS: ADD MANUAL MICROSCOPIC YES
[2018-10-31 08:32] LABS: ANION GAP 9 (5-19); BLOOD UREA NITROGEN 32 mg/dL (7-20); CALCIUM 10.2 mg/dL (8.4-10.2); CARBON DIOXIDE 23 mmol/L (22-30); CHLORIDE 109 mmol/L (98-107); GLUCOSE 95 mg/dL (75-110); POTASSIUM 4.1 mmol/L (3.6-5.0)
[2018-10-31 08:47] LABS: UR PRO/CREAT RATIO RESULT 0.8 mg/mg (0.0-0.2); URINE CREATININE 58.5 mg/dL (15-278); URINE PROTEIN 46.2 mg/dL (<12)
[2018-10-31 08:54] LABS: BACTERIA,URINE 2+ /HPF; RBC,URINE 20-30 /HPF; YEAST,URINE PRESENT
[2018-11-01 14:59] LABS: BK PCR QNT Negative copies/mL (Negative)
[2018-11-01 18:20] LABS: CMV DNA PCR QUANT Negative (Negative)
[2018-11-03 10:42] LABS: TACROLIMUS (FK506) 9.6 ng/mL (2.0-20.0)
== END ==
LOC: OD 07:04
PROVIDERS: ATTEND Student in an Organized Health Care Education/Training Program
DX: B25.9 Cytomegaloviral disease, unspecified (principal); Z94.0 Kidney transplant status; Z51.81 Encounter for therapeutic drug level monitoring; Z79.899 Other long term (current) drug therapy
CPT/HCPCS: 36415; 80048; 80197; 81001; 82570; 84156; 85027; 87496; 87799

== ENCOUNTER 2018-11-07 10:30 | Emergency (ER) | payer OTHER, MEDICARE, MEDICAID ==
[2018-11-07] MEDS ORDERED: NORMAL SALINE 500 ML IV ONE (10:57)
[2018-11-07] MEDS ORDERED: CALCIUM GLUCONATE 1000 MG/10 ML INJ IV ONE (10:57)
--- NOTE | 2018-11-07 10:58 | ER Document Report ---
ED General - General Chief Complaint: Abnormal Lab Results Stated Complaint: ABNORMAL LABS Time Seen by Provider: 11/07/18 10:55 Primary Care Provider: EVER BERTRAND MD [ACTIVE STAFF] - Follow up in 3-5 days ANA LILIA RIVERA [NO LOCAL MD] - 11/12/18 Mode of Arrival: Ambulatory Information source: Patient, DrJeferson Leon, [facility] Records, Outside Facility Records Notes: 63-year-old female with hypertension, end-stage renal disease with recent kidney transplant 1 month ago at [facility] presents after abnormal blood work results. Patient had blood work performed this morning which showed a potassium of 6.3. Patient currently complains of fatigue only. She states last night she had some reflux, burning in her chest and vomiting which self resolved. She denies any fever, chills, chest pain, shortness of breath, diaphoresis, abdominal pain. She is complaining of back pain which she says is chronic. She denies any dysuria, hematuria. TRAVEL OUTSIDE OF THE [place] IN LAST 30 DAYS: No - HPI Onset: This morning Onset/Duration: Gradual Quality of pain: Achy Severity: Mild Associated symptoms: Body/muscle aches, Nausea, Vomiting, Shortness of breath - With exertion. denies: Chest pain, Fever Exacerbated by: Walking Relieved by: Remaining still Similar symptoms previously: Yes Recently seen / treated by doctor: Yes - Related Data Allergies/Adverse Reactions: No Known Allergies Allergy (Verified 10/31/18 15:46) Past Medical History - General Information source: Patient, [facility] Records - Social History Smoking Status: Never Smoker Frequency of alcohol use: None Drug Abuse: None Lives with: Family Family History: CVA, Hypertension - Past Medical History Cardiac Medical History: Reports: Hx Hypertension Renal/ Medical History: Reports: Hx End Stage Renal Disease - Dialysis MWF. Denies: Hx Peritoneal Dialysis - Immunizations Hx Diphtheria, Pertussis, Tetanus Vaccination: Yes Physical Exam - Vital signs Vitals: Temp Pulse Resp BP Pulse Ox 97.4 F 100 16 151/77 H 100 11/07/18 10:36 11/07/18 10:36 11/07/18 10:36 11/07/18 10:36 11/07/18 10:36 Course - Re-evaluation Re-evalutation: Laboratory 11/07/18 11/07/18 11/07/18 11:00 11:00 11:00 WBC 7.9 RBC 4.11 Hgb 12.5 D Hct 37.1 MCV 90 MCH 30.6 MCHC 33.8 RDW 18.8 H Plt Count 338 Seg Neutrophils % 71.5 Lymphocytes % 21.0 Monocytes % 6.5 Eosinophils % 0.5 Basophils % 0.5 Absolute Neutrophils 5.7 Absolute Lymphocytes 1.7 Absolute Monocytes 0.5 Absolute Eosinophils 0.0 Absolute Basophils 0.0 Platelet Estimate BIOPHYSICS PROFESSOR Carbonic Acid HCO3/H2CO3 Ratio ABG pH ABG pCO2 ABG pO2 ABG HCO3 ABG Total CO2 ABG O2 Saturation ABG Base Excess VBG pH VBG pCO2 VBG HCO3 VBG Base Excess FiO2 Sodium 144.5 Potassium 5.9 H Chloride 115 H Carbon Dioxide 17 L Anion Gap 13 BUN 38 H Creatinine 2.23 H Est GFR ( Amer) 27 L Est GFR (Non-Af Amer) 22 L Glucose 139 H Lactic Acid Calcium 12.3 H* Total Bilirubin 0.5 Direct Bilirubin 0.3 Neonat Total Bilirubin Not Reportable Neonat Direct Bilirubin Not Reportable Neonat Indirect Bili Not Reportable AST 52 H ALT 19 Alkaline Phosphatase 120 Creatine Kinase 133 CK-MB (CK-2) 21.70 H Troponin I 0.150 NT-Pro-B Natriuret Pep Total Protein 9.0 H Albumin 5.2 H Slides for Path Review BIOPHYSICS PROFESSOR 11/07/18 11/07/18 11/07/18 11:00 11:55 11:55 WBC RBC Hgb Hct MCV MCH MCHC RDW Plt Count Seg Neutrophils % Lymphocytes % Monocytes % Eosinophils % Basophils % Absolute Neutrophils Absolute Lymphocytes Absolute Monocytes Absolute Eosinophils Absolute Basophils Platelet Estimate Carbonic Acid HCO3/H2CO3 Ratio ABG pH ABG pCO2 ABG pO2 ABG HCO3 ABG Total CO2 ABG O2 Saturation ABG Base Excess VBG pH 7.19 L* VBG pCO2 43.9 VBG HCO3 16.4 L VBG Base Excess -11.2 FiO2 Sodium 142.9 Potassium 5.8 H Chloride 118 H Carbon Dioxide 13 L Anion Gap 12 BUN 40 H Creatinine 1.94 H Est GFR ( Amer) 32 L Est GFR (Non-Af Amer) 26 L Glucose 121 H Lactic Acid Calcium 11.1 H Total Bilirubin Direct Bilirubin Neonat Total Bilirubin Neonat Direct Bilirubin Neonat Indirect Bili AST ALT Alkaline Phosphatase Creatine Kinase CK-MB (CK-2) Troponin I NT-Pro-B Natriuret Pep 0 H Total Protein Albumin Slides for Path Review 11/07/18 11/07/18 11/07/18 13:35 13:35 13:35 WBC Cancelled RBC Cancelled Hgb Cancelled Hct Cancelled MCV Cancelled MCH Cancelled MCHC Cancelled RDW Cancelled Plt Count Cancelled Seg Neutrophils % Cancelled Lymphocytes % Cancelled Monocytes % Cancelled Eosinophils % Cancelled Basophils % Cancelled Absolute Neutrophils Cancelled Absolute Lymphocytes Cancelled Absolute Monocytes Cancelled Absolute Eosinophils Cancelled Absolute Basophils Cancelled Platelet Estimate Cancelled Carbonic Acid HCO3/H2CO3 Ratio ABG pH ABG pCO2 ABG pO2 ABG HCO3 ABG Total CO2 ABG O2 Saturation ABG Base Excess VBG pH VBG pCO2 VBG HCO3 VBG Base Excess FiO2 Sodium Potassium Chloride Carbon Dioxide Anion Gap BUN Creatinine Est GFR ( Amer) Est GFR (Non-Af Amer) Glucose Lactic Acid 0.8 Calcium Total Bilirubin Direct Bilirubin Neonat Total Bilirubin Neonat Direct Bilirubin Neonat Indirect Bili AST ALT Alkaline Phosphatase Creatine Kinase CK-MB (CK-2) 18.90 H Troponin I 0.162 NT-Pro-B Natriuret Pep Total Protein Albumin Slides for Path Review Cancelled 11/07/18 13:43 WBC RBC Hgb Hct MCV MCH MCHC RDW Plt Count Seg Neutrophils % Lymphocytes % Monocytes % Eosinophils % Basophils % Absolute Neutrophils Absolute Lymphocytes Absolute Monocytes Absolute Eosinophils Absolute Basophils Platelet Estimate Carbonic Acid 0.85 L HCO3/H2CO3 Ratio 17:1 ABG pH 7.34 L ABG pCO2 28.1 L ABG pO2 105.9 H ABG HCO3 14.7 L ABG Total CO2 15.5 L ABG O2 Saturation 97.6 ABG Base Excess -9.8 VBG pH VBG pCO2 VBG HCO3 VBG Base Excess FiO2 ROOM AIR Sodium Potassium Chloride Carbon Dioxide Anion Gap BUN Creatinine Est GFR ( Amer) Est GFR (Non-Af Amer) Glucose Lactic Acid Calcium Total Bilirubin Direct Bilirubin Neonat Total Bilirubin Neonat Direct Bilirubin Neonat Indirect Bili AST ALT Alkaline Phosphatase Creatine Kinase CK-MB (CK-2) Troponin I NT-Pro-B Natriuret Pep Total Protein Albumin Slides for Path Review Chest X-Ray 11/07/18 12:23 IMPRESSION: NO ACUTE RADIOGRAPHIC FINDING IN THE CHEST. Temp Pulse Resp BP Pulse Ox 97.4 F 100 15 170/94 H 100 11/07/18 10:36 08/15/19 10:36 11/07/18 16:41 11/07/18 16:44 11/07/18 16:44 11/07/18 10:57 [address] did speak to Dr. Hernanedz who is reading EKGs today regarding the patient's a nterior ST elevation in V1 and V2 with diffuse T wave inversions. Previous EKG obtained in 2012 does show similar T wave inversions. At this point he did believe this is likely secondary to the patient's hyperkalemia and would repeat EKG after treatment. Patient denies any chest pain, nausea, diaphoresis, lightheadedness she does report shortness of breath with activity which is new for her. 11/07/18 12:[address] Ana Lilia Villatoro patient's transplant surgeon and reviewed the patient's labs. She would like me to hydrate the patient with 1 L of IV fluids and repeat a BMP, ABG and lactate. 11/07/18 14:[address] Villatoro again regarding patient's repeat labs which have improved. Patient's potassium is 5.8, repeat ABG shows a pH of 7.34 but patient's CK-MB and troponin are still elevated. I did consult Dr. Ever Bertrand trade analyst who has agreed to see the patient. Dr. Villatoro would like the patient transferred to [facility] if cardiology feels it is warranted. 11/07/18 15:57 Patient was evaluated by Dr. Bertrand trade analyst who has reviewed the patient's labs and EKG. At this point he does not feel that the patient's EKG is concerning and her ST elevation is likely secondary to LVH. Dr. Villatoro was updated and states that she will have the patient coordinator call and medications for hyperkalemia. She is comfortable with the patient's current potassium of 5.8. Patient does have an upcoming appointment on November 12, 2018. Patient is comfortable with discharge home. 11/07/18 18:14 Patient was evaluated and treated as appropriate for the patient's presenting symptoms and complaint, with consideration of any critical or life threatening conditions that may be associated with their obtained history and exam as noted above. All results were discussed with patient. Patient provided the opportunity to ask questions, and express concerns. Patient was educated on treatments based on their presumed diagnosis as noted above. At this time we will discharge the patient with return precautions and follow-up recommendations. Verbal discharge instructions given a the bedside. Medication warnings reviewed. Patient is in agreement with this plan and has verbalized understanding of return precautions. After careful consideration I feel that that patient can be safely discharged from the emergency department, they were advised to followup with a primary care physician in 2-3 days. Dictation on this chart was performed using voice recognition software and may result in unintended grammatical, spelling, syntax or errors. 11/07/18 18:16 - Vital Signs Vital signs: Temp Pulse Resp BP Pulse Ox 97.4 F 100 15 170/94 H 100 11/07/18 10:36 11/07/18 10:36 11/07/18 16:41 11/07/18 16:44 11/07/18 16:44 - Laboratory Result Diagrams: 11/07/18 11:00 11/07/18 11:55 Laboratory results interpreted by me: 11/07/18 11/07/18 11/07/18 11:00 11:00 11:00 RDW 18.8 H Carbonic Acid ABG pH ABG pCO2 ABG pO2 ABG HCO3 ABG Total CO2 VBG pH VBG HCO3 Potassium 5.9 H Chloride 115 H Carbon Dioxide 17 L BUN 38 H Creatinine 2.23 H Est GFR ( Amer) 27 L Est GFR (Non-Af Amer) 22 L Glucose 139 H Calcium 12.3 H* AST 52 H CK-MB (CK-2) 21.70 H NT-Pro-B Natriuret Pep Total Protein 9.0 H Albumin 5.2 H 11/07/18 11/07/18 11/07/18 11:00 11:55 11:55 RDW Carbonic Acid ABG pH ABG pCO2 ABG pO2 ABG HCO3 ABG Total CO2 VBG pH 7.19 L* VBG HCO3 16.4 L Potassium 5.8 H Chloride 118 H Carbon Dioxide 13 L BUN 40 H Creatinine 1.94 H Est GFR ( Amer) 32 L Est GFR (Non-Af Amer) 26 L Glucose 121 H Calcium 11.1 H AST CK-MB (CK-2) NT-Pro-B Natriuret Pep 2080 H Total Protein Albumin 11/07/18 11/07/18 13:35 13:43 RDW Carbonic Acid 0.85 L ABG pH 7.34 L ABG pCO2 28.1 L ABG pO2 105.9 H ABG HCO3 14.7 L ABG Total CO2 15.5 L VBG pH VBG HCO3 Potassium Chloride Carbon Dioxide BUN Creatinine Est GFR ( Amer) Est GFR (Non-Af Amer) Glucose Calcium AST CK-MB (CK-2) 18.90 H NT-Pro-B Natriuret Pep Total Protein Albumin - Diagnostic Test Radiology reviewed: Image reviewed, Reports reviewed - EKG Interpretation by Me EKG shows normal: Sinus rhythm Rate: Normal Voltage: Consistant with LVH When compared to previous EKG there are: No significant change Critical Care Note - Critical Care Note Total time excluding time spent on procedures (mins): 45 - Minutes of critical care time spent in direct contact evaluating and reevaluating the patient, treating symptoms, reviewing labs and studies and speaking with family and consultants excluding any procedures Discharge - Discharge Clinical Impression: Hyperkalemia, LVH (left ventricular hypertrophy), Renal transplant, status post, Metabolic acidosis Hypertension Qualifiers: Hypertension type: unspecified Qualified Code(s): I10 - Essential (primary) hypertension Condition: Good Disposition: HOME, SELF-CARE Additional Instructions: Please to follow-up with Dr. Villatoro your transplant surgeon as already scheduled on November 12. Please return to the emergency department if you experience any chest pain, shortness of breath or any other symptoms concerning to you. Avoid foods high in potassium such as bananas, avocados, white potatoes. Drink plenty of fluids. Forms: Elevated Blood Pressure Referrals: ANA LILIA RIVERA [NO LOCAL MD] - 11/12/18 EVER BERTRAND MD [ACTIVE STAFF] - Follow up in 3-5 days
--- NOTE | 2018-11-07 11:01 | EKG REPORT ---
SEVERITY:- ABNORMAL ECG - SINUS RHYTHM LVH WITH SECONDARY REPOLARIZATION ABNORMALITY ABNORMAL T, PROBABLE ISCHEMIA, LATERAL LEADS ANTERIOR ST ELEVATION, PROBABLY DUE TO LVH : Confirmed by: Katalina Hernandez 07-Nov-2018 11:01:13
[2018-11-07 11:37] LABS: ALBUMIN 5.2 g/dL (3.5-5.0); ALKALINE PHOSPHATASE 120 U/L (38-126); ANION GAP 13 (5-19); ASPARTATE AMINO TRANSFERASE 52 U/L (14-36); BILIRUBIN,DIRECT 0.3 mg/dL (0.0-0.4); BILIRUBIN,TOTAL 0.5 mg/dL (0.2-1.3); BLOOD UREA NITROGEN 38 mg/dL (7-20); CARBON DIOXIDE 17 mmol/L (22-30); CHLORIDE 115 mmol/L (98-107); CREATINE KINASE 133 U/L (30-135); GLUCOSE 139 mg/dL (75-110); POTASSIUM 5.9 mmol/L (3.6-5.0)
[2018-11-07 11:46] LABS: CALCIUM 12.3 mg/dL (8.4-10.2)
[2018-11-07 11:49] LABS: CREATINE KINASE MB 21.7 ng/mL (<4.55)
[2018-11-07 11:52] LABS: TROPONIN I 0.15 ng/mL
[2018-11-07 12:00] LABS: ABSOLUTE LYMPHOCYTES (AUTO) 1.7 10^3/uL (0.5-4.7); ABSOLUTE MONOCYTES (AUTO) 0.5 10^3/uL (0.1-1.4); ABSOLUTE NEUT (AUTO) 5.7 10^3/uL (1.7-8.2); BASOPHILS % (AUTO) 0.5 % (0-2); EOSINOPHILS % (AUTO) 0.5 % (0-6); HEMATOCRIT 37.1 % (36.0-47.0); MEAN CORPUSCULAR HEMOGLOBIN 30.6 pg (27.0-33.4); MEAN CORPUSCULAR HGB CONC 33.8 g/dL (32.0-36.0); MEAN CORPUSCULAR VOLUME 90 fl (80-97); MONOCYTES % (AUTO) 6.5 % (3-13); PLATELET COUNT 338 10^3/uL (150-450); RED BLOOD COUNT 4.11 10^6/uL (3.72-5.28); RED CELL DISTRIBUTION WIDTH 18.8 % (11.5-14.0); SEGMENTED NEUTROPHILS % (AUTO) 71.5 % (42-78); TOTAL CELLS COUNTED % (AUTO) 100 %; WHITE BLOOD COUNT 7.9 10^3/uL (4.0-10.5)
[2018-11-07 12:05] LABS: VENOUS BLOOD BASE EXCESS -11.2 mmol/L; VENOUS BLOOD HCO3 16.4 mmol/L (20-32); VENOUS BLOOD PCO2 43.9 mmHg (35-63)
[2018-11-07 12:06] LABS: HEMOGLOBIN 12.5 g/dL (12.0-15.5)
[2018-11-07 12:07] LABS: VENOUS BLOOD PH 7.19 (7.30-7.42)
--- NOTE | 2018-11-07 12:53 | RADIOLOGY REPORT (SQ) ---
EXAM DESCRIPTION: CHEST SINGLE VIEW COMPLETED DATE/TIME: 11/07/2018 12:44 pm REASON FOR STUDY: Shortness of breath COMPARISON: 12/23/2012 EXAM PARAMETERS: NUMBER OF VIEWS: One view. TECHNIQUE: Single frontal radiographic view of the chest acquired. RADIATION DOSE: NA LIMITATIONS: None. FINDINGS: LUNGS AND PLEURA: No opacities, masses or pneumothorax. No pleural effusion. MEDIASTINUM AND HILAR STRUCTURES: No masses. Contour normal. HEART AND VASCULAR STRUCTURES: Heart normal in size. Normal vasculature. BONES: No acute findings. HARDWARE: Dual-lumen catheter on the left. OTHER: No other significant finding. IMPRESSION: NO ACUTE RADIOGRAPHIC FINDING IN THE CHEST. TECHNICAL DOCUMENTATION: JOB ID: [id number] [employer]- All Rights Reserved Reading location - IP/workstation name: [email or web address]
[2018-11-07 13:28] LABS: ANION GAP 12 (5-19); BLOOD UREA NITROGEN 40 mg/dL (7-20); CALCIUM 11.1 mg/dL (8.4-10.2); CARBON DIOXIDE 13 mmol/L (22-30); CHLORIDE 118 mmol/L (98-107); GLUCOSE 121 mg/dL (75-110); POTASSIUM 5.8 mmol/L (3.6-5.0)
[2018-11-07 14:08] LABS: ARTERIAL BLOOD BASE EXCESS -9.8 mmol/L; ARTERIAL BLOOD FIO2 ROOM AIR; ARTERIAL BLOOD H2CO3 0.85 mmol/L (1.05-1.35); ARTERIAL BLOOD HCO3 14.7 mmol/L (20-24); ARTERIAL BLOOD O2 SATURATION 97.6 % (94-98); ARTERIAL BLOOD PCO2 28.1 mmHg (35-45); ARTERIAL BLOOD PH 7.34 (7.35-7.45); ARTERIAL BLOOD PO2 105.9 mmHg (80-100); ARTERIAL BLOOD TOTAL CO2 15.5 mmol/L (21-25)
[2018-11-07 14:25] LABS: CREATINE KINASE MB 18.9 ng/mL (<4.55); TROPONIN I 0.162 ng/mL
--- NOTE | 2018-11-07 16:07 | PDOC CONSULTATION ---
Consultation Consult Date: 11/07/18 Provider Consulted: EVER BERTRAND History of Present Illness Admission Date/PCP: RAJI MATTA MD Patient complains of: No complaints. Was referred to ED due to Hyperkalemia. History of Present Illness: MARCIA GANNON is a 63 year old female 1. Renal Transplant 10/03/2018 [facility] 2. Systemic hypertension Post renal transplant has done well. Was referred to ED due to hyperkalemia by service line coordinator. No prior medial history that is pertinent. Of not had complete cardiac work up including Echo and stress test prior to surgery - unremarkable per patient. No cardiac symptoms whatsover. Denies chest pain and dyspnea. No familial illnesses No tobacco. No ETOH. Works as a [employer] MANAGER Past Medical History Cardiac Medical History: Reports: Hypertension Renal/ Medical History: Reports: End Stage Renal Disease - Dialysis MWF Past Surgical History Past Surgical History: Reports: Renal Transplant, Vascular Surgery Social History Smoking Status: Former Smoker Family History Family History: CVA, Hypertension Parental Family History Reviewed: No Children Family History Reviewed: NA Sibling(s) Family History Reviewed.: NA Medication/Allergy Home Medications: Clonidine HCl [Catapres 0.3 mg Tablet] 0.3 mg PO QHS 12/23/12 Estrogen,Con/M-Progest Acet [Prempro 0.3 Mg-1.5 Mg Tablet] 1 each PO DAILY 12/23/12 Folic Acid/Vitamin B Comp W-C [Ana María-Mariangel Tablet] 0.8 mg PO DAILY 12/23/12 Guanfacine HCl [Tenex] 1 mg PO DAILY 12/23/12 Hydrocodone Bit/Acetaminophen [Vicodin 5-500 mg Tablet] 1 - 2 tab PO ASDIR PRN #15 tablet 12/23/12 Labetalol HCl [Normodyne 200 Mg Tablet] 300 mg PO DAILY 12/23/12 Lisinopril [Prinivil 40 mg Tablet] 40 mg PO DAILY 12/23/12 Nifedipine [Nifedipine ER] 90 mg PO DAILY 12/23/12 Sevelamer Carbonate [Renvela] 1,600 mg PO TID 12/23/12 Penicillin V Potassium [Penicillin Vk 500 mg Tablet] 500 mg PO BID #20 tablet 10/27/13 Lidocaine/Prilocaine [Emla Cream] 1 applic TP Q2D 11/05/13 Acetaminophen with Codeine [Tylenol #3 Tablet] 1 each PO Q4HP PRN #14 tablet 08/23/15 Penicillin V Potassium [Penicillin Vk 500 mg Tablet] 500 mg PO QID #40 tablet 08/23/15 Magnesium Citrate [Citrate of Magnesia 296 ml Bottle] 296 ml PO DAILY #1 bottle 08/01/18 Polyethylene Glycol 3350 [Miralax] 1 cap PO DAILY #1 bottle 08/01/18 Tramadol HCl [Ultram 50 mg Tablet] 50 mg PO Q6HP PRN #12 tablet 08/01/18 Allergies/Adverse Reactions: No Known Allergies Allergy (Verified 10/31/18 15:46) Review of Systems All systems: reviewed and no additional remarkable complaints except as stated Constitutional: PRESENT: as per HPI Eyes: PRESENT: as per HPI Ears: PRESENT: as per HPI Nose, Mouth, and Throat: PRESENT: as per HPI Neurological: PRESENT: as per HPI Psychiatric: PRESENT: as per HPI Hematologic/Lymphatic: PRESENT: as per HPI Physical Exam Vital Signs: Temp Pulse Resp BP Pulse Ox 97.4 F 100 16 151/77 H 100 11/07/18 10:36 11/07/18 10:36 11/07/18 10:36 11/07/18 10:36 11/07/18 10:50 Intake & Output 11/06/18 11/07/18 11/08/18 06:59 06:59 06:59 Intake Total 500 Balance 500 Weight 40.3 kg General appearance: PRESENT: no acute distress, cooperative, thin Head exam: PRESENT: atraumatic, normocephalic Eye exam: PRESENT: EOMI Ear exam: PRESENT: normal external ear exam Mouth exam: PRESENT: moist Neck exam: PRESENT: full ROM Respiratory exam: PRESENT: unlabored Cardiovascular exam: PRESENT: RRR, other Pulses: PRESENT: normal radial pulses GI/Abdominal exam: PRESENT: soft Musculoskeletal exam: PRESENT: normal inspection Neurological exam: PRESENT: alert, oriented to person, oriented to place, oriented to time, oriented to situation Psychiatric exam: PRESENT: appropriate affect Skin exam: PRESENT: dry Results Laboratory Results: 11/07/18 13:35 11/07/18 11:55 11/07/18 11/07/18 11/07/18 11:00 11:00 11:55 WBC 7.9 RBC 4.11 Hgb 12.5 D Hct 37.1 MCV 90 MCH 30.6 MCHC 33.8 RDW 18.8 H Plt Count 338 Seg Neutrophils % 71.5 Lymphocytes % 21.0 Monocytes % 6.5 Eosinophils % 0.5 Basophils % 0.5 Absolute Neutrophils 5.7 Absolute Lymphocytes 1.7 Absolute Monocytes 0.5 Absolute Eosinophils 0.0 Absolute Basophils 0.0 Carbonic Acid HCO3/H2CO3 Ratio ABG pH ABG pCO2 ABG pO2 ABG HCO3 ABG O2 Saturation ABG Base Excess VBG pH 7.19 L* VBG pCO2 43.9 VBG HCO3 16.4 L VBG Base Excess -11.2 FiO2 Sodium 144.5 Potassium 5.9 H Chloride 115 H Carbon Dioxide 17 L Anion Gap 13 BUN 38 H Creatinine 2.23 H Est GFR ( Amer) 27 L Est GFR (Non-Af Amer) 22 L Glucose 139 H Lactic Acid Calcium 12.3 H* Total Bilirubin 0.5 AST 52 H Alkaline Phosphatase 120 Total Protein 9.0 H Albumin 5.2 H 11/07/18 11/07/18 11/07/18 11:55 13:35 13:35 WBC Cancelled RBC Cancelled Hgb Cancelled Hct Cancelled MCV Cancelled MCH Cancelled MCHC Cancelled RDW Cancelled Plt Count Cancelled Seg Neutrophils % Cancelled Lymphocytes % Cancelled Monocytes % Cancelled Eosinophils % Cancelled Basophils % Cancelled Absolute Neutrophils Cancelled Absolute Lymphocytes Cancelled Absolute Monocytes Cancelled Absolute Eosinophils Cancelled Absolute Basophils Cancelled Carbonic Acid HCO3/H2CO3 Ratio ABG pH ABG pCO2 ABG pO2 ABG HCO3 ABG O2 Saturation ABG Base Excess VBG pH VBG pCO2 VBG HCO3 VBG Base Excess FiO2 Sodium 142.9 Potassium 5.8 H Chloride 118 H Carbon Dioxide 13 L Anion Gap 12 BUN 40 H Creatinine 1.94 H Est GFR ( Amer) 32 L Est GFR (Non-Af Amer) 26 L Glucose 121 H Lactic Acid 0.8 Calcium 11.1 H Total Bilirubin AST Alkaline Phosphatase Total Protein Albumin 11/07/18 13:43 WBC RBC Hgb Hct MCV MCH MCHC RDW Plt Count Seg Neutrophils % Lymphocytes % Monocytes % Eosinophils % Basophils % Absolute Neutrophils Absolute Lymphocytes Absolute Monocytes Absolute Eosinophils Absolute Basophils Carbonic Acid 0.85 L HCO3/H2CO3 Ratio 17:1 ABG pH 7.34 L ABG pCO2 28.1 L ABG pO2 105.9 H ABG HCO3 14.7 L ABG O2 Saturation 97.6 ABG Base Excess -9.8 VBG pH VBG pCO2 VBG HCO3 VBG Base Excess FiO2 ROOM AIR Sodium Potassium Chloride Carbon Dioxide Anion Gap BUN Creatinine Est GFR ( Amer) Est GFR (Non-Af Amer) Glucose Lactic Acid Calcium Total Bilirubin AST Alkaline Phosphatase Total Protein Albumin 11/07/18 11/07/18 11/07/18 11:00 11:00 11:00 Creatine Kinase 133 CK-MB (CK-2) 21.70 H Troponin I 0.150 NT-Pro-B Natriuret Pep 2080 H 11/07/18 13:35 Creatine Kinase CK-MB (CK-2) 18.90 H Troponin I 0.162 NT-Pro-B Natriuret Pep Impressions: Chest X-Ray 11/07/18 12:23 IMPRESSION: NO ACUTE RADIOGRAPHIC FINDING IN THE CHEST. Assessment & Plan - Diagnosis (1) LVH (left ventricular hypertrophy) Is this a current diagnosis for this admission?: Yes Plan: 12 lead EKGs were reviewed independentkly by ky 1213 SR 91 bpm, LVH R Fps=548 ms 1040 SR 94 bpm, LVHR Zyc=873 ms 12/23/2018 1949 SR 63 bpm, LVHR Vzf=260 ,ms Trops- flat. Chest pain free. Recent cardiac workup per patient negative. Does not fit criteria for ACS. Continue risk factor modification (2) Hyperkalemia Is this a current diagnosis for this admission?: Yes Plan: Renal aware. Now 5.8 Defer to Nephrology (3) Hypertension Qualifiers: Hypertension type: essential hypertension Qualified Code(s): I10 - Essential (primary) hypertension Is this a current diagnosis for this admission?: Yes Plan: Continue medical therapy - Notes Notes: Saw and evaluated patient. Chest pain free. EKG c/w LVH SSM at apex , flow murmur ? Indeterminate cardiac bio-markers. LVH ? Will evaluate in office. Stable for discharge from cardiac stand point
[2018-11-07 17:03] VITALS: BP 170/94
--- NOTE | 2018-11-09 10:30 | EKG REPORT ---
SEVERITY:- ABNORMAL ECG - SINUS RHYTHM LVH WITH SECONDARY REPOLARIZATION ABNORMALITY ANTERIOR ST ELEVATION, PROBABLY DUE TO LVH : Confirmed by: Katalina Hernandez 09-Nov-2018 10:29:32
== END 2018-11-07 17:04 | disposition home or self-care (01) ==
LOC: ER 10:30
DX: E87.5 Hyperkalemia (principal); I13.11 Hypertensive heart and chronic kidney disease without heart failure, with stage 5 chronic kidney disease, or end stage renal disease; N18.6 End stage renal disease; Z99.2 Dependence on renal dialysis; Z94.0 Kidney transplant status; R53.83 Other fatigue; R11.2 Nausea with vomiting, unspecified; R06.02 Shortness of breath; E87.2 Acidosis; M79.10 Myalgia, unspecified site; R79.89 Other specified abnormal findings of blood chemistry; Z79.899 Other long term (current) drug therapy
CPT/HCPCS: 93005; 99285; 96374; 36415; 82553; 82803 ×2; 82550; 83605; 87070; 84484; 83880; 71045; 93010; J0610; J7040

== ENCOUNTER → 2018-11-07 | Outpatient (CLI) | payer OTHER, MEDICARE, MEDICAID ==
[2018-11-07 09:19] LABS: HEMATOCRIT 30.9 % (36.0-47.0); HEMOGLOBIN 10.3 g/dL (12.0-15.5); MEAN CORPUSCULAR HEMOGLOBIN 30.1 pg (27.0-33.4); MEAN CORPUSCULAR HGB CONC 33.2 g/dL (32.0-36.0); MEAN CORPUSCULAR VOLUME 91 fl (80-97); PLATELET COUNT 291 10^3/uL (150-450); RED BLOOD COUNT 3.41 10^6/uL (3.72-5.28); RED CELL DISTRIBUTION WIDTH 18.3 % (11.5-14.0); WHITE BLOOD COUNT 8.1 10^3/uL (4.0-10.5)
[2018-11-07 09:39] LABS: APPEARANCE,URINE CLEAR; BILIRUBIN,URINE NEGATIVE (NEGATIVE); COLOR,URINE YELLOW; GLUCOSE, URINE 50 mg/dL (NEGATIVE); KETONES,URINE NEGATIVE (NEGATIVE); LEUKOCYTE ESTERASE,URINE SMALL (NEGATIVE); NITRITE,URINE NEGATIVE (NEGATIVE); PROTEIN,URINE NEGATIVE (NEGATIVE); URINE SPECIFIC GRAVITY 1.011; UROBILINOGEN,URINE NEGATIVE mg/dL (<2.0)
[2018-11-07 09:51] LABS: ANION GAP 12 (5-19); BLOOD UREA NITROGEN 39 mg/dL (7-20); CALCIUM 11.5 mg/dL (8.4-10.2); CARBON DIOXIDE 15 mmol/L (22-30); CHLORIDE 117 mmol/L (98-107); GLUCOSE 117 mg/dL (75-110)
[2018-11-07 09:56] LABS: POTASSIUM 6.3 mmol/L (3.6-5.0)
[2018-11-07 10:00] LABS: UR PRO/CREAT RATIO RESULT 0.8 mg/mg (0.0-0.2); URINE CREATININE 48.9 mg/dL (15-278); URINE PROTEIN 37.3 mg/dL (<12)
[2018-11-08 17:33] LABS: BK PCR QNT Negative copies/mL (Negative)
[2018-11-09 16:24] LABS: CMV DNA PCR QUANT Negative (Negative)
[2018-11-09 16:26] LABS: TACROLIMUS (FK506) 11.7 ng/mL (2.0-20.0)
== END ==
LOC: OD 08:22
PROVIDERS: ATTEND Student in an Organized Health Care Education/Training Program
DX: Z94.0 Kidney transplant status (principal); Z51.81 Encounter for therapeutic drug level monitoring; B34.9 Viral infection, unspecified; Z79.899 Other long term (current) drug therapy
CPT/HCPCS: 36415; 80048; 80197; 81001; 82570; 84156; 85027; 87496; 87799

== ENCOUNTER → 2018-11-19 | Outpatient (CLI) | payer OTHER, MEDICARE, MEDICAID ==
[2018-11-19 10:34] LABS: HEMATOCRIT 31.2 % (36.0-47.0); HEMOGLOBIN 10.3 g/dL (12.0-15.5); MEAN CORPUSCULAR HEMOGLOBIN 30.3 pg (27.0-33.4); MEAN CORPUSCULAR VOLUME 92 fl (80-97); PLATELET COUNT 306 10^3/uL (150-450); RED BLOOD COUNT 3.39 10^6/uL (3.72-5.28); RED CELL DISTRIBUTION WIDTH 18.5 % (11.5-14.0); WHITE BLOOD COUNT 6.7 10^3/uL (4.0-10.5)
[2018-11-19 10:43] LABS: APPEARANCE,URINE CLEAR; BILIRUBIN,URINE NEGATIVE (NEGATIVE); COLOR,URINE YELLOW; GLUCOSE, URINE 50 mg/dL (NEGATIVE); KETONES,URINE NEGATIVE (NEGATIVE); LEUKOCYTE ESTERASE,URINE TRACE (NEGATIVE); NITRITE,URINE NEGATIVE (NEGATIVE); PROTEIN,URINE 30 mg/dL (NEGATIVE); URINE SPECIFIC GRAVITY 1.011; UROBILINOGEN,URINE NEGATIVE mg/dL (<2.0)
[2018-11-19 10:51] LABS: ANION GAP 9 (5-19); BLOOD UREA NITROGEN 17 mg/dL (7-20); CALCIUM 10.8 mg/dL (8.4-10.2); CARBON DIOXIDE 19 mmol/L (22-30); CHLORIDE 118 mmol/L (98-107); GLUCOSE 111 mg/dL (75-110); POTASSIUM 4.5 mmol/L (3.6-5.0)
[2018-11-19 11:05] LABS: UR PRO/CREAT RATIO RESULT 1.7 mg/mg (0.0-0.2); URINE CREATININE 48.4 mg/dL (15-278)
[2018-11-21 08:50] LABS: TACROLIMUS (FK506) 13.3 ng/mL (2.0-20.0)
== END ==
LOC: OD 09:30
PROVIDERS: ATTEND Student in an Organized Health Care Education/Training Program
DX: Z94.0 Kidney transplant status (principal); Z51.81 Encounter for therapeutic drug level monitoring; Z79.899 Other long term (current) drug therapy
CPT/HCPCS: 36415; 80048; 80197; 81001; 82570; 84156; 85027; 87496; 87799

== ENCOUNTER 2018-11-29 03:00 | Emergency (ER) | payer OTHER, MEDICARE, MEDICAID ==
[2018-11-29] MEDS ORDERED: NORMAL SALINE 500 ML IV ONE ×2 (03:13→04:41)
--- NOTE | 2018-11-29 03:16 | ER Document Report ---
ED General - General Chief Complaint: Dizziness Stated Complaint: DIZZINESS Time Seen by Provider: 11/29/18 03:04 Primary Care Provider: JOVON RIVERA [NO LOCAL MD] - Follow up as needed Notes: Patient is a 63-year-old female that comes emergency department for chief complaint of weakness and lightheadedness, she states that she has had very little appetite and has not eaten anything for the past 2 days, she states that she also has not urinated in over 48 hours, she states that she got up this morning and felt very lightheaded like she was going to pass out. She states she vaguely felt short of breath. She denies chest pain. She denies syncope. She denies fever/chills, she vomited yesterday once but has not vomited since, denies nausea. Past medical history includes hypertension, end-stage renal disease, and renal transplant at [place] approximately 1 month ago, she still follows with [place] transplant team. Patient states that in addition to this she recently had a procedure performed on her abdomen to repair a gastric outlet obstruction. She is unable to give me any of the details on this unfortunately. She denies any particular abdominal pain, redness or drainage from the wounds, fever/chills. TRAVEL OUTSIDE OF THE [place] IN LAST 30 DAYS: Yes - Related Data Allergies/Adverse Reactions: No Known Allergies Allergy (Verified 10/31/18 15:46) Past Medical History - General Information source: Patient - Social History Smoking Status: Never Smoker Frequency of alcohol use: None Drug Abuse: None Lives with: Family Family History: CVA, Hypertension - Past Medical History Cardiac Medical History: Reports: Hx Hypertension Renal/ Medical History: Reports: Hx End Stage Renal Disease - Dialysis MWF. Denies: Hx Peritoneal Dialysis Past Surgical History: Reports: Hx Vascular Surgery - Immunizations Hx Diphtheria, Pertussis, Tetanus Vaccination: Yes Review of Systems - Review of Systems Constitutional: See HPI EENT: See HPI Cardiovascular: See HPI Respiratory: No symptoms reported Gastrointestinal: See HPI Genitourinary: See HPI Female Genitourinary: No symptoms reported Musculoskeletal: No symptoms reported Skin: No symptoms reported Hematologic/Lymphatic: No symptoms reported Neurological/Psychological: No symptoms reported Physical Exam - Vital signs Vitals: Resp 20 11/29/18 03:09 - Notes Notes: GENERAL: Patient is frail and somewhat ill in appearance, however she is still interactive and she is not in any obvious distress HEAD: Normocephalic, atraumatic. EYES: Pupils equal, round, and reactive to light. Extraocular movements intact. ENT: Oral mucosa very dry, tongue midline. Oropharynx unremarkable. Airway patent. NECK: Full range of motion. Supple. Trachea midline. LUNGS: Clear to auscultation bilaterally, no wheezes, rales, or rhonchi. No respiratory distress. No tachypnea or labored breathing. HEART: Borderline tachycardia, normal rhythm, no murmur ABDOMEN: There are jessica in the mid left abdomen in a vertical surgical fashion. There appears to be good healing in the area, no tenderness, erythema, or discharge noted. Abdomen is soft and benign. GENITOURINARY: Deferred EXTREMITIES: Moves all 4 extremities spontaneously. No edema, normal radial and dorsalis pedis pulses bilaterally. No cyanosis. BACK: no cervical, thoracic, lumbar midline tenderness. No saddle anesthesia, normal distal neurovascular exam. Moves all extremities in full range of motion. NEUROLOGICAL: Alert and oriented x3. Normal speech. Cranial nerves II through XII grossly intact. PSYCH: Normal affect, normal mood. SKIN: Warm, dry, normal turgor. No rashes or lesions noted. Course - Re-evaluation Re-evalutation: Patient's presentation is concerning because of her general ill appearance and history in addition to her not urinating in the past 48 hours. CBC shows leukoc ytosis at 17,000, nonspecific given patient's soft abdomen and lack of fever. Hemoglobin is 9, this is decreased from prior, however patient specifically denies any blood in the stool. She did have vomiting without hematemesis yesterday but not today. Unfortunately chemistry hemolyzed and is still pending. Chest x-ray unremarkable. Chemistry shows acute renal failure which is severe, creatinine was previously 1.9 a month ago and is now 10.9. GFR is 4. Potassium was 6.9. Bicarbonate of 8. Anion gap unremarkable, glucose unremarkable, BUN is 107. Patient has been given 1 L normal saline bolus total, giving calcium gluconate, insulin, dextrose, and additional IV fluids. Discussed with Dr. Nielson. Discussed with patient, will call transfer center to transfer the patient back to the renal transplant team. 11/29/18 05:12 Called transfer center at [place], pending call back. On reevaluation patient has no complaints. Heart rate is in the upper 90s, pressures in the 170 systolic. No significant change. 11/29/18 06:[address] Luz, surgeon on-call for the transplant team. He performed the patient's transplant. He accepts patient for transfer to [facility] with ED to ED transfer. He does not recommend any additional occasions were testing at this time, we will discontinue the IV fluids at this time. I discussed with patient, she states appreciation and agreement. 11/29/18 08:00 Introduced to Roberto LOVING at bedside. - Vital Signs Vital signs: Temp Pulse Resp BP Pulse Ox 98.4 F 16 170/73 H 100 11/29/18 06:30 11/29/18 06:01 11/29/18 06:00 11/29/18 05:01 - Laboratory Result Diagrams: 11/29/18 03:35 11/29/18 04:20 Laboratory results interpreted by me: 11/29/18 11/29/18 03:35 04:20 WBC 17.2 H RBC 2.91 L Hgb 9.0 L Hct 27.3 L RDW 18.0 H Plt Count 497 H Seg Neuts % (Manual) 95 H Lymphocytes % (Manual) 3 L Monocytes % (Manual) 2 L Abs Neuts (Manual) 16.3 H Potassium 6.9 H* Chloride 109 H Carbon Dioxide 8 L* Anion Gap 21 H BUN 107 H Creatinine 10.97 H Est GFR ( Amer) 4 L Est GFR (MDRD) Non-Af 4 L Total Protein 5.9 L Albumin 3.4 L - EKG Interpretation by Me Additional EKG results interpreted by me: EKG showing sinus tachycardia at 102. QTC of 459. Lateral leads with inverted T waves in all 4 leads, anterior leads with ST elevation but appears to be J-point elevation. Discussed with Dr. Nielson. Critical Care Note - Critical Care Note Total time excluding time spent on procedures (mins): 35 - Acute renal failure, hyperkalemia, metabolic acidosis Comments: Please allow 35 minutes critical care time for evaluation and management of patient with acute renal failure, hyperkalemia, metabolic acidosis. Interventions including IV fluids, calcium gluconate, insulin, dextrose. Time spent performing multiple re-evaluations, review of previous records, discussion and transfer to tertiary care facility. Discharge - Discharge Clinical Impression: Renal transplant recipient, Hyperkalemia Acute renal failure Qualifiers: Acute renal failure type: unspecified Qualified Code(s): N17.9 - Acute kidney failure, unspecified Condition: Serious Disposition: [facility] Referrals: JOVON RIVERA [NO LOCAL MD] - Follow up as needed
[2018-11-29 03:43] LABS: HEMATOCRIT 27.3 % (36.0-47.0); MEAN CORPUSCULAR HEMOGLOBIN 30.7 pg (27.0-33.4); MEAN CORPUSCULAR HGB CONC 32.8 g/dL (32.0-36.0); MEAN CORPUSCULAR VOLUME 94 fl (80-97); PLATELET COUNT 497 10^3/uL (150-450); RED BLOOD COUNT 2.91 10^6/uL (3.72-5.28); WHITE BLOOD COUNT 17.2 10^3/uL (4.0-10.5)
--- NOTE | 2018-11-29 03:54 | RADIOLOGY REPORT (SQ) ---
Chest single view on 11/29/2018 at 3:43 AM CLINICAL INDICATION: Dizziness, shortness of breath COMPARISON: 11/07/2018 FINDINGS: Previously noted left IJ catheter has been removed. There is minimal right basilar atelectasis. Lungs are otherwise clear. Mild vascular calcification is noted in the aorta. Cardiac, hilar and mediastinal contours are within normal limits. Pulmonary vascularity is within normal limits. IMPRESSION: No acute disease.
[2018-11-29 04:08] LABS: ABSOLUTE LYMPHOCYTES# (MANUAL) 0.5 10^3/uL (0.5-4.7); ABSOLUTE MONOCYTES # (MANUAL) 0.3 10^3/uL (0.1-1.4); BASOPHILS % (MANUAL) 0 % (0-2); EOSINOPHILS % (MANUAL) 0 % (0-6); LYMPHOCYTES % (MANUAL) 3 % (13-45); MONOCYTES % (MANUAL) 2 % (3-13); SEGMENTED NEUTROPHILS % (MAN) 95 % (42-78); TOTAL CELLS COUNTED 100
[2018-11-29 04:09] LABS: ANISOCYTOSIS 2+; BURR CELLS 1+; PLATELET COMMENT INCREASED; POIKILOCYTOSIS 1+; POLYCHROMASIA SLIGHT
[2018-11-29 04:52] LABS: ALBUMIN 3.4 g/dL (3.5-5.0); ALKALINE PHOSPHATASE 84 U/L (38-126); ASPARTATE AMINO TRANSFERASE 21 U/L (14-36); BILIRUBIN,DIRECT 0.3 mg/dL (0.0-0.4); BILIRUBIN,TOTAL 0.3 mg/dL (0.2-1.3); BLOOD UREA NITROGEN 107 mg/dL (7-20); CALCIUM 10.2 mg/dL (8.4-10.2); GLUCOSE 103 mg/dL (75-110); TOTAL PROTEIN 5.9 g/dL (6.3-8.2)
[2018-11-29 04:57] LABS: CHLORIDE 109 mmol/L (98-107)
[2018-11-29 05:02] LABS: ANION GAP 21 (5-19)
[2018-11-29 05:05] LABS: CARBON DIOXIDE 8 mmol/L (22-30); POTASSIUM 6.9 mmol/L (3.6-5.0)
[2018-11-29] MEDS ORDERED: INSULIN REG, HUMAN 100 UNIT/ML 3 ML VIAL (PYX) IV ONE ×2 (05:05→12:30)
[2018-11-29] MEDS ORDERED: DEXTROSE 50%-WATER 25 GM/50 ML DISP.SYRIN IV ONE (05:05)
[2018-11-29] MEDS ORDERED: CALCIUM GLUCONATE 1000 MG/10 ML INJ IV ONE (05:05)
[2018-11-29] MEDS ORDERED: NORMAL SALINE 1000 ML 1,000 ML IV PRN (05:07)
[2018-11-29 12:15] VITALS: BP 187/71
[2018-11-29 12:58] LABS: ANION GAP 17 (5-19); BLOOD UREA NITROGEN 108 mg/dL (7-20); CALCIUM 9.9 mg/dL (8.4-10.2); CHLORIDE 112 mmol/L (98-107); GLUCOSE 104 mg/dL (75-110)
[2018-11-29 13:08] LABS: CARBON DIOXIDE 8 mmol/L (22-30); POTASSIUM 6.6 mmol/L (3.6-5.0)
--- NOTE | 2018-12-01 18:55 | EKG REPORT ---
SEVERITY:- ABNORMAL ECG - SINUS RHYTHM PROBABLE LEFT ATRIAL ABNORMALITY LVH WITH SECONDARY REPOLARIZATION ABNORMALITY ST ELEVATION, PROBABLE ANTERIOR INJURY LATERAL LEADS ARE ALSO INVOLVED : Confirmed by: Katalina Hernandez 01-Dec-2018 18:54:42
--- NOTE | 2018-12-01 18:55 | EKG REPORT ---
SEVERITY:- ABNORMAL ECG - SINUS TACHYCARDIA LEFT ATRIAL ABNORMALITY LVH WITH SECONDARY REPOLARIZATION ABNORMALITY ANTERIOR Q WAVES, POSSIBLY DUE TO LVH ABNORMAL T, PROBABLE ISCHEMIA, LATERAL LEADS : Confirmed by: Katalina Hernandez 01-Dec-2018 18:55:03
== END 2018-11-29 12:36 | disposition short-term general hospital (02) ==
LOC: ER 03:00
DX: I12.0 Hypertensive chronic kidney disease with stage 5 chronic kidney disease or end stage renal disease (principal); N18.6 End stage renal disease; E87.5 Hyperkalemia; R42 Dizziness and giddiness; R53.1 Weakness; Z99.2 Dependence on renal dialysis; Z94.0 Kidney transplant status
CPT/HCPCS: 93005; 99291; 96361; 96374; 36415; 85025; 80053; 84484; 71045; 93010; J0610; J3490; J1815; J7030; J7040

== ENCOUNTER → 2018-12-06 | Outpatient (CLI) | payer MEDICARE, OTHER, MEDICAID ==
[2018-12-06 10:38] LABS: APPEARANCE,URINE CLEAR; BILIRUBIN,URINE NEGATIVE (NEGATIVE); COLOR,URINE YELLOW; GLUCOSE, URINE 50 mg/dL (NEGATIVE); KETONES,URINE NEGATIVE (NEGATIVE); LEUKOCYTE ESTERASE,URINE SMALL (NEGATIVE); NITRITE,URINE NEGATIVE (NEGATIVE); PROTEIN,URINE 100 mg/dL (NEGATIVE); URINE SPECIFIC GRAVITY 1.011; UROBILINOGEN,URINE NEGATIVE mg/dL (<2.0)
[2018-12-06 10:41] LABS: ADD MANUAL MICROSCOPIC YES; BACTERIA,URINE TRACE /HPF; RBC,URINE 50-100 /HPF
[2018-12-06 10:43] LABS: ANION GAP 11 (5-19); BLOOD UREA NITROGEN 19 mg/dL (7-20); CALCIUM 9.8 mg/dL (8.4-10.2); CARBON DIOXIDE 21 mmol/L (22-30); CHLORIDE 111 mmol/L (98-107); GLUCOSE 101 mg/dL (75-110); POTASSIUM 3.6 mmol/L (3.6-5.0)
[2018-12-06 10:55] LABS: URINE CREATININE 49.8 mg/dL (15-278); URINE PROTEIN 147.5 mg/dL (<12)
[2018-12-06 11:01] LABS: HEMATOCRIT 27.2 % (36.0-47.0); HEMOGLOBIN 9.2 g/dL (12.0-15.5); MEAN CORPUSCULAR HEMOGLOBIN 29.8 pg (27.0-33.4); MEAN CORPUSCULAR HGB CONC 33.6 g/dL (32.0-36.0); PLATELET COUNT 194 10^3/uL (150-450); RED BLOOD COUNT 3.07 10^6/uL (3.72-5.28); RED CELL DISTRIBUTION WIDTH 17.7 % (11.5-14.0); WHITE BLOOD COUNT 3.1 10^3/uL (4.0-10.5)
[2018-12-06 11:05] LABS: MEAN CORPUSCULAR VOLUME 89 fl (80-97)
[2018-12-09 07:06] LABS: TACROLIMUS (FK506) 12.4 ng/mL (2.0-20.0)
[2018-12-10 10:43] LABS: CMV DNA PCR QUANT Positive < 200 IU/mL (Negative)
[2018-12-11 07:41] LABS: BK PCR QNT 46250 copies/mL (Negative)
== END ==
LOC: OD 08:34
PROVIDERS: ATTEND Student in an Organized Health Care Education/Training Program
DX: Z51.81 Encounter for therapeutic drug level monitoring (principal); Z94.0 Kidney transplant status; N39.0 Urinary tract infection, site not specified
CPT/HCPCS: 36415; 80048; 80197; 81001; 82570; 84156; 85027; 87496; 87799

== ENCOUNTER → 2018-12-16 | Outpatient (CLI) | payer MEDICARE, OTHER, MEDICAID ==
[2018-12-16 11:03] LABS: HEMATOCRIT 31.5 % (36.0-47.0); HEMOGLOBIN 10.1 g/dL (12.0-15.5); MEAN CORPUSCULAR HEMOGLOBIN 29.2 pg (27.0-33.4); MEAN CORPUSCULAR HGB CONC 32.1 g/dL (32.0-36.0); MEAN CORPUSCULAR VOLUME 91 fl (80-97); PLATELET COUNT 322 10^3/uL (150-450); RED BLOOD COUNT 3.47 10^6/uL (3.72-5.28); RED CELL DISTRIBUTION WIDTH 18.1 % (11.5-14.0); WHITE BLOOD COUNT 5.5 10^3/uL (4.0-10.5)
[2018-12-16 11:07] LABS: APPEARANCE,URINE SLIGHTLY-CLOUDY; BILIRUBIN,URINE NEGATIVE (NEGATIVE); COLOR,URINE YELLOW; GLUCOSE, URINE NEGATIVE (NEGATIVE); KETONES,URINE NEGATIVE (NEGATIVE); LEUKOCYTE ESTERASE,URINE SMALL (NEGATIVE); NITRITE,URINE NEGATIVE (NEGATIVE); PROTEIN,URINE 100 mg/dL (NEGATIVE); URINE SPECIFIC GRAVITY 1.012; UROBILINOGEN,URINE NEGATIVE mg/dL (<2.0)
[2018-12-16 11:12] LABS: ANION GAP 11 (5-19); BLOOD UREA NITROGEN 31 mg/dL (7-20); CARBON DIOXIDE 19 mmol/L (22-30); CHLORIDE 113 mmol/L (98-107); GLUCOSE 96 mg/dL (75-110); POTASSIUM 5.1 mmol/L (3.6-5.0)
[2018-12-16 11:20] LABS: URINE PROTEIN 85.4 mg/dL (<12)
== END ==
LOC: OD 09:34
PROVIDERS: ATTEND Student in an Organized Health Care Education/Training Program
DX: Z94.0 Kidney transplant status (principal); Z51.81 Encounter for therapeutic drug level monitoring; B25.9 Cytomegaloviral disease, unspecified; Z79.899 Other long term (current) drug therapy
CPT/HCPCS: 36415; 80048; 80197; 81001; 82570; 84156; 85027; 87496; 87799

== ENCOUNTER → 2019-01-01 | Outpatient (CLI) | payer MEDICARE, OTHER, MEDICAID ==
[2019-01-01 09:43] LABS: HEMOGLOBIN 9.9 g/dL (12.0-15.5); MEAN CORPUSCULAR HEMOGLOBIN 30.1 pg (27.0-33.4); MEAN CORPUSCULAR HGB CONC 32.9 g/dL (32.0-36.0); MEAN CORPUSCULAR VOLUME 92 fl (80-97); PLATELET COUNT 318 10^3/uL (150-450); RED BLOOD COUNT 3.28 10^6/uL (3.72-5.28); RED CELL DISTRIBUTION WIDTH 18.3 % (11.5-14.0); WHITE BLOOD COUNT 4.3 10^3/uL (4.0-10.5)
[2019-01-01 09:49] LABS: APPEARANCE,URINE CLEAR; BILIRUBIN,URINE NEGATIVE (NEGATIVE); COLOR,URINE YELLOW; GLUCOSE, URINE NEGATIVE (NEGATIVE); KETONES,URINE NEGATIVE (NEGATIVE); LEUKOCYTE ESTERASE,URINE SMALL (NEGATIVE); NITRITE,URINE NEGATIVE (NEGATIVE); PROTEIN,URINE 30 mg/dL (NEGATIVE); URINE SPECIFIC GRAVITY 1.014; UROBILINOGEN,URINE NEGATIVE mg/dL (<2.0)
[2019-01-01 10:27] LABS: ANION GAP 9 (5-19); BLOOD UREA NITROGEN 25 mg/dL (7-20); CALCIUM 9.9 mg/dL (8.4-10.2); CARBON DIOXIDE 24 mmol/L (22-30); CHLORIDE 108 mmol/L (98-107); GLUCOSE 103 mg/dL (75-110); POTASSIUM 5.5 mmol/L (3.6-5.0)
[2019-01-01 10:27] LABS: UR PRO/CREAT RATIO RESULT 0.7 mg/mg (0.0-0.2); URINE CREATININE 67.9 mg/dL (15-278); URINE PROTEIN 46.9 mg/dL (<12)
[2019-01-02 16:29] LABS: BK PCR QNT Negative copies/mL (Negative)
[2019-01-03 10:44] LABS: CMV DNA PCR QUANT Positive < 200 IU/mL (Negative)
[2019-01-04 15:54] LABS: TACROLIMUS (FK506) 3.5 ng/mL (2.0-20.0)
== END ==
LOC: OD 08:21
PROVIDERS: ATTEND Student in an Organized Health Care Education/Training Program
DX: B25.9 Cytomegaloviral disease, unspecified (principal); Z94.0 Kidney transplant status; Z51.81 Encounter for therapeutic drug level monitoring; Z79.899 Other long term (current) drug therapy
CPT/HCPCS: 36415; 80048; 80197; 81001; 82570; 84156; 85027; 87496; 87799

== ENCOUNTER → 2019-01-17 | Outpatient (CLI) | payer MEDICARE, OTHER, MEDICAID ==
[2019-01-17 08:47] LABS: HEMATOCRIT 31.7 % (36.0-47.0); HEMOGLOBIN 10.2 g/dL (12.0-15.5); MEAN CORPUSCULAR HGB CONC 32.2 g/dL (32.0-36.0); MEAN CORPUSCULAR VOLUME 93 fl (80-97); PLATELET COUNT 222 10^3/uL (150-450); RED CELL DISTRIBUTION WIDTH 18.2 % (11.5-14.0); WHITE BLOOD COUNT 4.2 10^3/uL (4.0-10.5)
[2019-01-17 08:57] LABS: APPEARANCE,URINE CLEAR; BILIRUBIN,URINE NEGATIVE (NEGATIVE); COLOR,URINE YELLOW; GLUCOSE, URINE NEGATIVE (NEGATIVE); KETONES,URINE NEGATIVE (NEGATIVE); LEUKOCYTE ESTERASE,URINE SMALL (NEGATIVE); NITRITE,URINE NEGATIVE (NEGATIVE); PROTEIN,URINE NEGATIVE (NEGATIVE); URINE SPECIFIC GRAVITY 1.013; UROBILINOGEN,URINE NEGATIVE mg/dL (<2.0)
[2019-01-17 09:23] LABS: BLOOD UREA NITROGEN 29 mg/dL (7-20); CALCIUM 10.4 mg/dL (8.4-10.2); CARBON DIOXIDE 21 mmol/L (22-30); GLUCOSE 96 mg/dL (75-110)
[2019-01-17 10:03] LABS: ANION GAP 11 (5-19); CHLORIDE 110 mmol/L (98-107)
[2019-01-17 10:22] LABS: POTASSIUM 6.1 mmol/L (3.6-5.0)
[2019-01-17 10:47] LABS: UR PRO/CREAT RATIO RESULT 0.5 mg/mg (0.0-0.2); URINE CREATININE 65.6 mg/dL (15-278)
[2019-01-20 07:17] LABS: BK PCR QNT Negative copies/mL (Negative); CMV DNA PCR QUANT Positive < 200 IU/mL (Negative)
== END ==
LOC: OD 07:48
PROVIDERS: ATTEND Student in an Organized Health Care Education/Training Program
DX: B25.9 Cytomegaloviral disease, unspecified (principal); Z94.0 Kidney transplant status; Z51.81 Encounter for therapeutic drug level monitoring; Z79.899 Other long term (current) drug therapy
CPT/HCPCS: 36415; 80048; 80197; 81001; 82570; 84156; 85027; 87496; 87799

== ENCOUNTER → 2019-01-31 | Outpatient (CLI) | payer MEDICARE, OTHER, MEDICAID ==
[2019-01-31 09:18] LABS: HEMATOCRIT 30.2 % (36.0-47.0); HEMOGLOBIN 10.2 g/dL (12.0-15.5); MEAN CORPUSCULAR HGB CONC 33.7 g/dL (32.0-36.0); MEAN CORPUSCULAR VOLUME 92 fl (80-97); PLATELET COUNT 242 10^3/uL (150-450); RED BLOOD COUNT 3.29 10^6/uL (3.72-5.28); RED CELL DISTRIBUTION WIDTH 15.4 % (11.5-14.0); WHITE BLOOD COUNT 4.4 10^3/uL (4.0-10.5)
[2019-01-31 09:25] LABS: APPEARANCE,URINE CLEAR; BILIRUBIN,URINE NEGATIVE (NEGATIVE); COLOR,URINE YELLOW; GLUCOSE, URINE NEGATIVE (NEGATIVE); KETONES,URINE NEGATIVE (NEGATIVE); LEUKOCYTE ESTERASE,URINE MODERATE (NEGATIVE); NITRITE,URINE NEGATIVE (NEGATIVE); PROTEIN,URINE 100 mg/dL (NEGATIVE); URINE SPECIFIC GRAVITY 1.014; UROBILINOGEN,URINE NEGATIVE mg/dL (<2.0)
[2019-01-31 09:47] LABS: ANION GAP 10 (5-19); BLOOD UREA NITROGEN 29 mg/dL (7-20); CALCIUM 10.9 mg/dL (8.4-10.2); CARBON DIOXIDE 24 mmol/L (22-30); CHLORIDE 110 mmol/L (98-107); GLUCOSE 96 mg/dL (75-110)
[2019-01-31 09:57] LABS: UR PRO/CREAT RATIO RESULT 1.4 mg/mg (0.0-0.2); URINE CREATININE 77.8 mg/dL (15-278); URINE PROTEIN 106.9 mg/dL (<12)
[2019-02-04 07:01] LABS: BK PCR QNT Negative copies/mL (Negative); TACROLIMUS (FK506) 5.2 ng/mL (2.0-20.0)
[2019-02-04 11:08] LABS: CMV DNA PCR QUANT 439 IU/mL (Negative); CMV DNA PCR QUANT LOG10 2.642 (.)
== END ==
LOC: OD 07:48
PROVIDERS: ATTEND Student in an Organized Health Care Education/Training Program
DX: Z51.81 Encounter for therapeutic drug level monitoring (principal); Z94.0 Kidney transplant status
CPT/HCPCS: 36415; 80048; 80197; 81001; 82570; 84156; 85027; 87496; 87799

== ENCOUNTER → 2019-02-25 | Outpatient (CLI) | payer MEDICARE, MEDICAID ==
[2019-02-25 09:31] LABS: APPEARANCE,URINE CLEAR; BILIRUBIN,URINE NEGATIVE (NEGATIVE); COLOR,URINE YELLOW; GLUCOSE, URINE NEGATIVE (NEGATIVE); KETONES,URINE NEGATIVE (NEGATIVE); LEUKOCYTE ESTERASE,URINE SMALL (NEGATIVE); NITRITE,URINE NEGATIVE (NEGATIVE); PROTEIN,URINE 100 mg/dL (NEGATIVE); URINE SPECIFIC GRAVITY 1.014; UROBILINOGEN,URINE NEGATIVE mg/dL (<2.0)
[2019-02-25 09:40] LABS: HEMATOCRIT 34.2 % (36.0-47.0); HEMOGLOBIN 11.1 g/dL (12.0-15.5); MEAN CORPUSCULAR HEMOGLOBIN 29.6 pg (27.0-33.4); MEAN CORPUSCULAR HGB CONC 32.5 g/dL (32.0-36.0); MEAN CORPUSCULAR VOLUME 91 fl (80-97); PLATELET COUNT 297 10^3/uL (150-450); RED BLOOD COUNT 3.77 10^6/uL (3.72-5.28); RED CELL DISTRIBUTION WIDTH 15.1 % (11.5-14.0)
[2019-02-25 10:01] LABS: ANION GAP 11 (5-19); BLOOD UREA NITROGEN 17 mg/dL (7-20); CALCIUM 9.2 mg/dL (8.4-10.2); CARBON DIOXIDE 25 mmol/L (22-30); CHLORIDE 107 mmol/L (98-107); GLUCOSE 81 mg/dL (75-110); POTASSIUM 4.1 mmol/L (3.6-5.0)
[2019-02-25 10:12] LABS: UR PRO/CREAT RATIO RESULT 1.1 mg/mg (0.0-0.2); URINE CREATININE 74.1 mg/dL (15-278); URINE PROTEIN 78.9 mg/dL (<12)
[2019-02-26 13:44] LABS: BK PCR QNT Negative copies/mL (Negative)
[2019-02-27 07:30] LABS: CMV DNA PCR QUANT Positive < 200 IU/mL (Negative)
[2019-02-27 07:31] LABS: TACROLIMUS (FK506) 3.5 ng/mL (2.0-20.0)
== END ==
LOC: OD 08:20
PROVIDERS: ATTEND Student in an Organized Health Care Education/Training Program
DX: B25.9 Cytomegaloviral disease, unspecified (principal); Z94.0 Kidney transplant status; Z51.81 Encounter for therapeutic drug level monitoring; Z79.899 Other long term (current) drug therapy
CPT/HCPCS: 36415; 80048; 80197; 81001; 82570; 84156; 85027; 87496; 87799

== ENCOUNTER → 2019-03-12 | Outpatient (CLI) | payer MEDICARE, MEDICAID ==
[2019-03-12 09:20] LABS: HEMATOCRIT 35.8 % (36.0-47.0); HEMOGLOBIN 11.6 g/dL (12.0-15.5); MEAN CORPUSCULAR HEMOGLOBIN 30.3 pg (27.0-33.4); MEAN CORPUSCULAR HGB CONC 32.4 g/dL (32.0-36.0); MEAN CORPUSCULAR VOLUME 94 fl (80-97); RED BLOOD COUNT 3.83 10^6/uL (3.72-5.28); RED CELL DISTRIBUTION WIDTH 15.8 % (11.5-14.0); WHITE BLOOD COUNT 5.6 10^3/uL (4.0-10.5)
[2019-03-12 09:23] LABS: APPEARANCE,URINE CLEAR; BILIRUBIN,URINE NEGATIVE (NEGATIVE); COLOR,URINE YELLOW; GLUCOSE, URINE NEGATIVE (NEGATIVE); KETONES,URINE NEGATIVE (NEGATIVE); LEUKOCYTE ESTERASE,URINE SMALL (NEGATIVE); NITRITE,URINE NEGATIVE (NEGATIVE); PROTEIN,URINE 100 mg/dL (NEGATIVE); URINE SPECIFIC GRAVITY 1.012; UROBILINOGEN,URINE NEGATIVE mg/dL (<2.0)
[2019-03-12 09:48] LABS: ANION GAP 12 (5-19); BLOOD UREA NITROGEN 21 mg/dL (7-20); CALCIUM 9.6 mg/dL (8.4-10.2); CARBON DIOXIDE 25 mmol/L (22-30); CHLORIDE 106 mmol/L (98-107); GLUCOSE 80 mg/dL (75-110); POTASSIUM 4.3 mmol/L (3.6-5.0)
[2019-03-12 09:51] LABS: PLATELET COUNT 153 10^3/uL (150-450)
[2019-03-12 10:01] LABS: UR PRO/CREAT RATIO RESULT 1.2 mg/mg (0.0-0.2); URINE CREATININE 49.5 mg/dL (15-278); URINE PROTEIN 59.3 mg/dL (<12)
[2019-03-14 07:08] LABS: CMV DNA PCR QUANT Negative (Negative)
[2019-03-14 10:46] LABS: TACROLIMUS (FK506) 6.4 ng/mL (2.0-20.0)
[2019-03-14 15:25] LABS: BK PCR QNT Negative copies/mL (Negative)
== END ==
LOC: OD 08:09
PROVIDERS: ATTEND Student in an Organized Health Care Education/Training Program
DX: B25.9 Cytomegaloviral disease, unspecified (principal); Z94.0 Kidney transplant status; Z51.81 Encounter for therapeutic drug level monitoring; Z79.899 Other long term (current) drug therapy
CPT/HCPCS: 36415; 80048; 80197; 81001; 82570; 84156; 85027; 87496; 87799

== ENCOUNTER → 2019-03-31 | Outpatient (CLI) | payer MEDICARE, MEDICAID ==
[2019-03-31 09:27] LABS: HEMATOCRIT 36.7 % (36.0-47.0); MEAN CORPUSCULAR HGB CONC 32.7 g/dL (32.0-36.0); MEAN CORPUSCULAR VOLUME 92 fl (80-97); PLATELET COUNT 233 10^3/uL (150-450); RED CELL DISTRIBUTION WIDTH 14.8 % (11.5-14.0); WHITE BLOOD COUNT 4.1 10^3/uL (4.0-10.5)
[2019-03-31 09:34] LABS: APPEARANCE,URINE CLEAR; BILIRUBIN,URINE NEGATIVE (NEGATIVE); COLOR,URINE YELLOW; GLUCOSE, URINE NEGATIVE (NEGATIVE); KETONES,URINE NEGATIVE (NEGATIVE); LEUKOCYTE ESTERASE,URINE MODERATE (NEGATIVE); NITRITE,URINE NEGATIVE (NEGATIVE); PROTEIN,URINE 100 mg/dL (NEGATIVE); URINE SPECIFIC GRAVITY 1.013; UROBILINOGEN,URINE NEGATIVE mg/dL (<2.0)
[2019-03-31 09:57] LABS: ANION GAP 8 (5-19); BLOOD UREA NITROGEN 24 mg/dL (7-20); CARBON DIOXIDE 26 mmol/L (22-30); CHLORIDE 106 mmol/L (98-107); GLUCOSE 87 mg/dL (75-110); POTASSIUM 4.4 mmol/L (3.6-5.0)
[2019-03-31 10:08] LABS: URINE CREATININE 59.1 mg/dL (15-278); URINE PROTEIN 56.8 mg/dL (<12)
[2019-04-03 07:55] LABS: CMV DNA PCR QUANT Positive < 200 IU/mL (Negative)
[2019-04-03 10:59] LABS: BK PCR QNT Negative copies/mL (Negative)
== END ==
LOC: OD 08:19
PROVIDERS: ATTEND Student in an Organized Health Care Education/Training Program
DX: B25.9 Cytomegaloviral disease, unspecified (principal); Z94.0 Kidney transplant status; Z51.81 Encounter for therapeutic drug level monitoring; Z79.899 Other long term (current) drug therapy
CPT/HCPCS: 36415; 80048; 80197; 81001; 82570; 84156; 85027; 87496; 87799

== ENCOUNTER → 2019-04-08 | Outpatient (CLI) | payer MEDICARE, MEDICAID ==
[2019-04-08 10:20] LABS: HEMATOCRIT 38.5 % (36.0-47.0); HEMOGLOBIN 12.8 g/dL (12.0-15.5); MEAN CORPUSCULAR HEMOGLOBIN 30.1 pg (27.0-33.4); MEAN CORPUSCULAR HGB CONC 33.3 g/dL (32.0-36.0); MEAN CORPUSCULAR VOLUME 91 fl (80-97); PLATELET COUNT 248 10^3/uL (150-450); RED BLOOD COUNT 4.25 10^6/uL (3.72-5.28); RED CELL DISTRIBUTION WIDTH 14.3 % (11.5-14.0); WHITE BLOOD COUNT 6.2 10^3/uL (4.0-10.5)
[2019-04-08 10:35] LABS: APPEARANCE,URINE CLEAR; BILIRUBIN,URINE NEGATIVE (NEGATIVE); COLOR,URINE YELLOW; GLUCOSE, URINE NEGATIVE (NEGATIVE); KETONES,URINE NEGATIVE (NEGATIVE); LEUKOCYTE ESTERASE,URINE MODERATE (NEGATIVE); NITRITE,URINE NEGATIVE (NEGATIVE); PROTEIN,URINE 100 mg/dL (NEGATIVE); URINE SPECIFIC GRAVITY 1.015; UROBILINOGEN,URINE NEGATIVE mg/dL (<2.0)
[2019-04-08 10:48] LABS: ANION GAP 8 (5-19); BLOOD UREA NITROGEN 23 mg/dL (7-20); CALCIUM 10.6 mg/dL (8.4-10.2); CARBON DIOXIDE 26 mmol/L (22-30); CHLORIDE 107 mmol/L (98-107); GLUCOSE 94 mg/dL (75-110); POTASSIUM 4.7 mmol/L (3.6-5.0)
[2019-04-08 11:41] LABS: UR PRO/CREAT RATIO RESULT 0.9 mg/mg (0.0-0.2); URINE CREATININE 74.7 mg/dL (15-278); URINE PROTEIN 69.4 mg/dL (<12)
[2019-04-10 12:09] LABS: TACROLIMUS (FK506) 4.9 ng/mL (2.0-20.0)
[2019-04-10 14:32] LABS: BK PCR QNT Negative copies/mL (Negative)
== END ==
LOC: OD 09:40
PROVIDERS: ATTEND Student in an Organized Health Care Education/Training Program
DX: Z94.0 Kidney transplant status (principal); Z51.81 Encounter for therapeutic drug level monitoring; Z79.899 Other long term (current) drug therapy; B25.9 Cytomegaloviral disease, unspecified; N39.0 Urinary tract infection, site not specified
CPT/HCPCS: 36415; 80048; 80197; 81001; 82570; 84156; 85027; 87496; 87799

== ENCOUNTER → 2019-05-06 | Outpatient (CLI) | payer MEDICARE, MEDICAID ==
[2019-05-06 09:26] LABS: HEMATOCRIT 38.1 % (36.0-47.0); HEMOGLOBIN 12.7 g/dL (12.0-15.5); MEAN CORPUSCULAR HEMOGLOBIN 29.5 pg (27.0-33.4); MEAN CORPUSCULAR HGB CONC 33.3 g/dL (32.0-36.0); MEAN CORPUSCULAR VOLUME 89 fl (80-97); PLATELET COUNT 219 10^3/uL (150-450); RED BLOOD COUNT 4.29 10^6/uL (3.72-5.28); RED CELL DISTRIBUTION WIDTH 14.9 % (11.5-14.0); WHITE BLOOD COUNT 3.7 10^3/uL (4.0-10.5)
[2019-05-06 09:35] LABS: APPEARANCE,URINE CLEAR; BILIRUBIN,URINE NEGATIVE (NEGATIVE); COLOR,URINE YELLOW; GLUCOSE, URINE NEGATIVE (NEGATIVE); KETONES,URINE NEGATIVE (NEGATIVE); LEUKOCYTE ESTERASE,URINE NEGATIVE (NEGATIVE); NITRITE,URINE NEGATIVE (NEGATIVE); PROTEIN,URINE 100 mg/dL (NEGATIVE); URINE SPECIFIC GRAVITY 1.017; UROBILINOGEN,URINE NEGATIVE mg/dL (<2.0)
[2019-05-06 09:58] LABS: ANION GAP 11 (5-19); BLOOD UREA NITROGEN 18 mg/dL (7-20); CALCIUM 10.5 mg/dL (8.4-10.2); CARBON DIOXIDE 25 mmol/L (22-30); CHLORIDE 107 mmol/L (98-107); GLUCOSE 80 mg/dL (75-110); POTASSIUM 4.1 mmol/L (3.6-5.0)
[2019-05-06 10:14] LABS: UR PRO/CREAT RATIO RESULT 0.7 mg/mg (0.0-0.2); URINE CREATININE 104.9 mg/dL (15-278); URINE PROTEIN 78.4 mg/dL (<12)
[2019-05-07 14:25] LABS: BK PCR QNT Negative copies/mL (Negative)
[2019-05-08 10:43] LABS: CMV DNA PCR QUANT Negative (Negative)
== END ==
LOC: OD 08:11
PROVIDERS: ATTEND Student in an Organized Health Care Education/Training Program
DX: B25.9 Cytomegaloviral disease, unspecified (principal); Z94.0 Kidney transplant status; Z51.81 Encounter for therapeutic drug level monitoring; Z79.899 Other long term (current) drug therapy
CPT/HCPCS: 36415; 80048; 80197; 81001; 82570; 84156; 85027; 87496; 87799

== ENCOUNTER → 2019-05-20 | Outpatient (CLI) | payer MEDICARE, MEDICAID ==
[2019-05-20 09:27] LABS: APPEARANCE,URINE CLEAR; BILIRUBIN,URINE NEGATIVE (NEGATIVE); COLOR,URINE YELLOW; GLUCOSE, URINE NEGATIVE (NEGATIVE); KETONES,URINE NEGATIVE (NEGATIVE); LEUKOCYTE ESTERASE,URINE TRACE (NEGATIVE); NITRITE,URINE NEGATIVE (NEGATIVE); PROTEIN,URINE 100 mg/dL (NEGATIVE); URINE SPECIFIC GRAVITY 1.016; UROBILINOGEN,URINE NEGATIVE mg/dL (<2.0)
[2019-05-20 09:27] LABS: HEMATOCRIT 38.9 % (36.0-47.0); HEMOGLOBIN 12.7 g/dL (12.0-15.5); MEAN CORPUSCULAR HEMOGLOBIN 29.2 pg (27.0-33.4); MEAN CORPUSCULAR HGB CONC 32.7 g/dL (32.0-36.0); MEAN CORPUSCULAR VOLUME 89 fl (80-97); PLATELET COUNT 239 10^3/uL (150-450); RED BLOOD COUNT 4.36 10^6/uL (3.72-5.28); RED CELL DISTRIBUTION WIDTH 14.8 % (11.5-14.0); WHITE BLOOD COUNT 2.7 10^3/uL (4.0-10.5)
[2019-05-20 09:50] LABS: ANION GAP 11 (5-19); BLOOD UREA NITROGEN 21 mg/dL (7-20); CALCIUM 10.6 mg/dL (8.4-10.2); CARBON DIOXIDE 26 mmol/L (22-30); CHLORIDE 105 mmol/L (98-107); GLUCOSE 89 mg/dL (75-110); POTASSIUM 4.6 mmol/L (3.6-5.0)
[2019-05-20 09:51] LABS: UR PRO/CREAT RATIO RESULT 0.6 mg/mg (0.0-0.2); URINE CREATININE 101.1 mg/dL (15-278); URINE PROTEIN 58.5 mg/dL (<12)
== END ==
LOC: OD 08:42
PROVIDERS: ATTEND Student in an Organized Health Care Education/Training Program
DX: Z94.0 Kidney transplant status (principal); Z51.81 Encounter for therapeutic drug level monitoring; Z79.899 Other long term (current) drug therapy; B25.9 Cytomegaloviral disease, unspecified
CPT/HCPCS: 36415; 80048; 80197; 81001; 82570; 84156; 85027; 87496; 87799

== ENCOUNTER → 2019-06-03 | Outpatient (CLI) | payer MEDICARE, MEDICAID ==
[2019-06-03 12:34] LABS: HEMATOCRIT 36.3 % (36.0-47.0); MEAN CORPUSCULAR HEMOGLOBIN 29.5 pg (27.0-33.4); MEAN CORPUSCULAR HGB CONC 33.1 g/dL (32.0-36.0); MEAN CORPUSCULAR VOLUME 89 fl (80-97); PLATELET COUNT 220 10^3/uL (150-450); RED BLOOD COUNT 4.07 10^6/uL (3.72-5.28); RED CELL DISTRIBUTION WIDTH 14.8 % (11.5-14.0)
[2019-06-03 12:41] LABS: APPEARANCE,URINE CLEAR; BILIRUBIN,URINE NEGATIVE (NEGATIVE); COLOR,URINE YELLOW; GLUCOSE, URINE NEGATIVE (NEGATIVE); KETONES,URINE NEGATIVE (NEGATIVE); LEUKOCYTE ESTERASE,URINE NEGATIVE (NEGATIVE); NITRITE,URINE NEGATIVE (NEGATIVE); PROTEIN,URINE 30 mg/dL (NEGATIVE); URINE SPECIFIC GRAVITY 1.015; UROBILINOGEN,URINE NEGATIVE mg/dL (<2.0)
[2019-06-03 13:00] LABS: ANION GAP 10 (5-19); BLOOD UREA NITROGEN 26 mg/dL (7-20); CALCIUM 10.1 mg/dL (8.4-10.2); CARBON DIOXIDE 27 mmol/L (22-30); CHLORIDE 106 mmol/L (98-107); GLUCOSE 82 mg/dL (75-110); POTASSIUM 4.5 mmol/L (3.6-5.0)
[2019-06-03 13:01] LABS: UR PRO/CREAT RATIO RESULT 0.6 mg/mg (0.0-0.2); URINE CREATININE 79.4 mg/dL (15-278); URINE PROTEIN 43.9 mg/dL (<12)
[2019-06-05 07:38] LABS: TACROLIMUS (FK506) 4.1 ng/mL (2.0-20.0)
[2019-06-06 07:07] LABS: CMV DNA PCR QUANT Negative (Negative)
[2019-06-06 15:14] LABS: BK PCR QNT Negative copies/mL (Negative)
== END ==
LOC: OD 11:23
PROVIDERS: ATTEND Student in an Organized Health Care Education/Training Program
DX: Z51.81 Encounter for therapeutic drug level monitoring (principal); Z79.899 Other long term (current) drug therapy; Z94.0 Kidney transplant status; B25.9 Cytomegaloviral disease, unspecified
CPT/HCPCS: 36415; 80048; 80197; 81001; 82570; 84156; 85027; 87496; 87799

== ENCOUNTER → 2019-07-30 | Outpatient (CLI) | payer MEDICARE, MEDICAID ==
[2019-07-30 09:59] LABS: HEMATOCRIT 31.5 % (36.0-47.0); HEMOGLOBIN 10.5 g/dL (12.0-15.5); MEAN CORPUSCULAR HEMOGLOBIN 30.3 pg (27.0-33.4); MEAN CORPUSCULAR HGB CONC 33.4 g/dL (32.0-36.0); MEAN CORPUSCULAR VOLUME 91 fl (80-97); PLATELET COUNT 235 10^3/uL (150-450); RED BLOOD COUNT 3.47 10^6/uL (3.72-5.28); RED CELL DISTRIBUTION WIDTH 14.8 % (11.5-14.0); WHITE BLOOD COUNT 3.8 10^3/uL (4.0-10.5)
[2019-07-30 10:09] LABS: APPEARANCE,URINE CLEAR; BILIRUBIN,URINE NEGATIVE (NEGATIVE); COLOR,URINE YELLOW; GLUCOSE, URINE NEGATIVE (NEGATIVE); KETONES,URINE NEGATIVE (NEGATIVE); LEUKOCYTE ESTERASE,URINE NEGATIVE (NEGATIVE); NITRITE,URINE NEGATIVE (NEGATIVE); PROTEIN,URINE 30 mg/dL (NEGATIVE); URINE SPECIFIC GRAVITY 1.013; UROBILINOGEN,URINE NEGATIVE mg/dL (<2.0)
[2019-07-30 10:22] LABS: ANION GAP 8 (5-19); BLOOD UREA NITROGEN 20 mg/dL (7-20); CALCIUM 10.1 mg/dL (8.4-10.2); CARBON DIOXIDE 23 mmol/L (22-30); CHLORIDE 110 mmol/L (98-107); GLUCOSE 101 mg/dL (75-110); POTASSIUM 4.6 mmol/L (3.6-5.0)
[2019-07-30 10:26] LABS: UR PRO/CREAT RATIO RESULT 0.7 mg/mg (0.0-0.2); URINE CREATININE 78.6 mg/dL (15-278); URINE PROTEIN 57.8 mg/dL (<12)
== END ==
LOC: OD 08:44
PROVIDERS: ATTEND Student in an Organized Health Care Education/Training Program
DX: B25.9 Cytomegaloviral disease, unspecified (principal); Z94.0 Kidney transplant status; Z51.81 Encounter for therapeutic drug level monitoring; Z79.899 Other long term (current) drug therapy
CPT/HCPCS: 36415; 80048; 80197; 81001; 82570; 84156; 85027; 87496; 87799

== ENCOUNTER → 2019-08-26 | Outpatient (CLI) | payer MEDICARE, MEDICAID ==
[2019-08-26 08:27] LABS: APPEARANCE,URINE CLEAR; BILIRUBIN,URINE NEGATIVE (NEGATIVE); COLOR,URINE STRAW; GLUCOSE, URINE NEGATIVE (NEGATIVE); KETONES,URINE NEGATIVE (NEGATIVE); LEUKOCYTE ESTERASE,URINE NEGATIVE (NEGATIVE); NITRITE,URINE NEGATIVE (NEGATIVE); PROTEIN,URINE 30 mg/dL (NEGATIVE); UROBILINOGEN,URINE NEGATIVE mg/dL (<2.0)
[2019-08-26 08:29] LABS: HEMATOCRIT 32.8 % (36.0-47.0); HEMOGLOBIN 10.8 g/dL (12.0-15.5); MEAN CORPUSCULAR HEMOGLOBIN 30.1 pg (27.0-33.4); MEAN CORPUSCULAR HGB CONC 32.8 g/dL (32.0-36.0); MEAN CORPUSCULAR VOLUME 92 fl (80-97); PLATELET COUNT 253 10^3/uL (150-450); RED BLOOD COUNT 3.57 10^6/uL (3.72-5.28); RED CELL DISTRIBUTION WIDTH 14.3 % (11.5-14.0); WHITE BLOOD COUNT 4.2 10^3/uL (4.0-10.5)
[2019-08-26 08:36] LABS: ANION GAP 6 (5-19); BLOOD UREA NITROGEN 22 mg/dL (7-20); CALCIUM 10.1 mg/dL (8.4-10.2); CARBON DIOXIDE 23 mmol/L (22-30); CHLORIDE 112 mmol/L (98-107); GLUCOSE 100 mg/dL (75-110); POTASSIUM 4.1 mmol/L (3.6-5.0)
[2019-08-26 09:42] LABS: UR PRO/CREAT RATIO RESULT 1.2 mg/mg (0.0-0.2); URINE CREATININE 41.4 mg/dL (15-278); URINE PROTEIN 49.8 mg/dL (<12)
[2019-08-28 13:34] LABS: TACROLIMUS (FK506) 6.4 ng/mL (2.0-20.0)
== END ==
LOC: OD 07:17
PROVIDERS: ATTEND Student in an Organized Health Care Education/Training Program
DX: B25.9 Cytomegaloviral disease, unspecified (principal); Z94.0 Kidney transplant status; Z51.81 Encounter for therapeutic drug level monitoring; Z79.899 Other long term (current) drug therapy
CPT/HCPCS: 36415; 80048; 80197; 81001; 82570; 84156; 85027; 87496; 87799

== ENCOUNTER → 2019-09-18 | Outpatient (CLI) | payer MEDICARE, MEDICAID ==
[2019-09-18 13:09] LABS: APPEARANCE,URINE CLEAR; BILIRUBIN,URINE NEGATIVE (NEGATIVE); COLOR,URINE YELLOW; GLUCOSE, URINE NEGATIVE (NEGATIVE); KETONES,URINE NEGATIVE (NEGATIVE); LEUKOCYTE ESTERASE,URINE NEGATIVE (NEGATIVE); NITRITE,URINE NEGATIVE (NEGATIVE); PROTEIN,URINE 30 mg/dL (NEGATIVE); URINE SPECIFIC GRAVITY 1.016; UROBILINOGEN,URINE NEGATIVE mg/dL (<2.0)
[2019-09-18 13:11] LABS: HEMOGLOBIN 11.2 g/dL (12.0-15.5); MEAN CORPUSCULAR HEMOGLOBIN 30.1 pg (27.0-33.4); MEAN CORPUSCULAR HGB CONC 32.8 g/dL (32.0-36.0); MEAN CORPUSCULAR VOLUME 92 fl (80-97); PLATELET COUNT 268 10^3/uL (150-450); RED BLOOD COUNT 3.71 10^6/uL (3.72-5.28); RED CELL DISTRIBUTION WIDTH 14.1 % (11.5-14.0); WHITE BLOOD COUNT 3.3 10^3/uL (4.0-10.5)
[2019-09-18 13:31] LABS: ANION GAP 5 (5-19); BLOOD UREA NITROGEN 26 mg/dL (7-20); CALCIUM 10.7 mg/dL (8.4-10.2); CARBON DIOXIDE 25 mmol/L (22-30); CHLORIDE 110 mmol/L (98-107); GLUCOSE 105 mg/dL (75-110); POTASSIUM 4.9 mmol/L (3.6-5.0)
[2019-09-18 13:37] LABS: UR PRO/CREAT RATIO RESULT 0.8 mg/mg (0.0-0.2); URINE CREATININE 86.6 mg/dL (15-278); URINE PROTEIN 65.7 mg/dL (<12)
== END ==
LOC: OD 11:38
PROVIDERS: ATTEND Student in an Organized Health Care Education/Training Program
DX: Z94.0 Kidney transplant status (principal); Z51.81 Encounter for therapeutic drug level monitoring; Z79.899 Other long term (current) drug therapy
CPT/HCPCS: 36415; 80048; 80197; 81001; 82570; 84156; 85027; 87496; 87799

== ENCOUNTER → 2019-10-21 | Outpatient (CLI) | payer MEDICARE, MEDICAID ==
[2019-10-21 08:23] LABS: HEMATOCRIT 33.4 % (36.0-47.0); HEMOGLOBIN 10.8 g/dL (12.0-15.5); MEAN CORPUSCULAR HEMOGLOBIN 29.2 pg (27.0-33.4); MEAN CORPUSCULAR HGB CONC 32.2 g/dL (32.0-36.0); MEAN CORPUSCULAR VOLUME 91 fl (80-97); PLATELET COUNT 281 10^3/uL (150-450); RED BLOOD COUNT 3.68 10^6/uL (3.72-5.28); RED CELL DISTRIBUTION WIDTH 14.3 % (11.5-14.0); WHITE BLOOD COUNT 2.8 10^3/uL (4.0-10.5)
[2019-10-21 08:31] LABS: APPEARANCE,URINE SLIGHTLY-CLOUDY; BILIRUBIN,URINE NEGATIVE (NEGATIVE); COLOR,URINE YELLOW; GLUCOSE, URINE NEGATIVE (NEGATIVE); KETONES,URINE NEGATIVE (NEGATIVE); LEUKOCYTE ESTERASE,URINE NEGATIVE (NEGATIVE); NITRITE,URINE NEGATIVE (NEGATIVE); PROTEIN,URINE 100 mg/dL (NEGATIVE); URINE SPECIFIC GRAVITY 1.015; UROBILINOGEN,URINE NEGATIVE mg/dL (<2.0)
[2019-10-21 08:54] LABS: ANION GAP 6 (5-19); BLOOD UREA NITROGEN 20 mg/dL (7-20); CALCIUM 10.3 mg/dL (8.4-10.2); CARBON DIOXIDE 26 mmol/L (22-30); CHLORIDE 110 mmol/L (98-107); GLUCOSE 104 mg/dL (75-110); POTASSIUM 3.9 mmol/L (3.6-5.0)
[2019-10-21 08:54] LABS: UR PRO/CREAT RATIO RESULT 0.8 mg/mg (0.0-0.2); URINE CREATININE 103.4 mg/dL (15-278); URINE PROTEIN 85.5 mg/dL (<12)
[2019-10-22 21:05] LABS: TACROLIMUS (FK506) 6.4 ng/mL (2.0-20.0)
== END ==
LOC: OD 07:27
PROVIDERS: ATTEND Internal Medicine
DX: Z94.0 Kidney transplant status (principal); Z51.81 Encounter for therapeutic drug level monitoring; Z79.899 Other long term (current) drug therapy
CPT/HCPCS: 36415; 80048; 80197; 81001; 82570; 84156; 85027; 87496; 87799

== ENCOUNTER → 2019-12-17 | Outpatient (CLI) | payer MEDICARE, MEDICAID ==
[2019-12-17 09:59] LABS: APPEARANCE,URINE CLEAR; BILIRUBIN,URINE NEGATIVE (NEGATIVE); COLOR,URINE YELLOW; GLUCOSE, URINE NEGATIVE (NEGATIVE); KETONES,URINE NEGATIVE (NEGATIVE); LEUKOCYTE ESTERASE,URINE NEGATIVE (NEGATIVE); NITRITE,URINE NEGATIVE (NEGATIVE); PROTEIN,URINE 30 mg/dL (NEGATIVE); URINE SPECIFIC GRAVITY 1.012; UROBILINOGEN,URINE NEGATIVE mg/dL (<2.0)
[2019-12-17 10:01] LABS: HEMATOCRIT 29.4 % (36.0-47.0); HEMOGLOBIN 9.8 g/dL (12.0-15.5); MEAN CORPUSCULAR HEMOGLOBIN 30.6 pg (27.0-33.4); MEAN CORPUSCULAR HGB CONC 33.4 g/dL (32.0-36.0); MEAN CORPUSCULAR VOLUME 92 fl (80-97); PLATELET COUNT 238 10^3/uL (150-450); RED BLOOD COUNT 3.22 10^6/uL (3.72-5.28); RED CELL DISTRIBUTION WIDTH 14.8 % (11.5-14.0)
[2019-12-17 10:24] LABS: ANION GAP 9 (5-19); BLOOD UREA NITROGEN 30 mg/dL (7-20); CALCIUM 10.1 mg/dL (8.4-10.2); CARBON DIOXIDE 24 mmol/L (22-30); CHLORIDE 110 mmol/L (98-107); GLUCOSE 98 mg/dL (75-110); POTASSIUM 4.5 mmol/L (3.6-5.0)
[2019-12-17 10:29] LABS: UR PRO/CREAT RATIO RESULT 0.8 mg/mg (0.0-0.2); URINE CREATININE 51.7 mg/dL (15-278); URINE PROTEIN 40.5 mg/dL (<12)
== END ==
LOC: OD 09:07
PROVIDERS: ATTEND Internal Medicine
DX: Z94.0 Kidney transplant status (principal); Z51.81 Encounter for therapeutic drug level monitoring; Z79.899 Other long term (current) drug therapy
CPT/HCPCS: 36415; 80048; 80197; 81001; 82570; 84156; 85027; 87496; 87799